=== PATIENT | female | born 1960 | race African-American/Black ===

== ENCOUNTER 2018-07-05 18:55 | Emergency (ER) | END 2018-07-05 22:06 | disposition home or self-care (01) ==

== ENCOUNTER 2018-08-23 16:35 | Emergency (ER) | END 2018-08-23 20:02 | disposition home or self-care (01) ==

== ENCOUNTER 2019-02-19 17:28 | Inpatient (IN) | payer OTHER ==
[~2019-02-19] VITALS: Ht 167.6 cm; Wt 73.1 kg
[~2019-02-19 17:28] MED LIST: CALC667C PO; CLON-379 PO; CLOP75TA19 PO; DIPH50CA30 PO; LABE200T25 PO; LEVE100018 PO; LOSA50TA14 PO; NIFE90TA21 PO
--- NOTE | 2019-02-19 17:39 | ERD ---
ER Documentation Chief Complaint Chief Complaint Chest pain HPI The patient is a 58-year-old female, presenting to the ER because of substernal and left-sided chest pain began after dialysis, had about 9 minutes left, sharp, 06/07, had similar symptom previously. She was treated with 3 nitroglycerin spray by EMS and the pain went down to 6-7/10. He denies chest pain with vomiting/radiation/exertion/diaphoresis, dyspnea, abdominal pain, vomiting, dysuria, diarrhea. She smokes, denies drinking, had history of substance abuse Past medical history: Epilepsy, hypertension, chronic kidney disease on hemodialysis Tuesday and Tuesday, asthma, depression Past surgical history: Right chest hemodialysis catheter ROS All systems reviewed and are negative except as per history of present illness. Medications Home Meds Active Scripts Levetiracetam* (Keppra*) 1,000 Mg Tablet, 1000 MG PO every 24 hours, #60 TAB Prov:CORDELL LITTLE DO 07/05/18 Reported Medications Nifedipine* (Nifedipine ER*) 90 Mg Tablet.sa, 90 MG PO DAILY, TAB.SA 08/23/18 Losartan Potassium* (Losartan Potassium*) 50 Mg Tablet, 50 MG PO DAILY, TAB 08/23/18 Diphenhydramine Hcl (BANOPHEN) 50 Mg Capsule, 50 MG PO QHS, CAP 08/23/18 Labetalol Hcl* (Labetalol Hcl*) 200 Mg Tablet, 200 MG PO TID, TAB 07/05/18 Calcium Acetate* (Calcium Acetate*) 667 Mg Capsule, 1334 MG PO WITH MEALS, #60 CAP 07/05/18 Clonidine Hcl* (Clonidine Hcl*) 0.1 Mg Tab, 0.1 MG PO TID PRN for ELEVATED BLOOD PRESSURE, TAB 07/05/18 Clopidogrel Bisulfate* (Clopidogrel Bisulfate*) 75 Mg Tablet, 75 MG PO DAILY, #30 TAB 07/05/18 Allergies Allergies: Coded Allergies: aspirin (Verified Allergy, Unknown, 08/23/18) PMhx/Soc History of Surgery: Yes (R arm AVF) Anesthesia Reaction: No Hx Neurological Disorder: No Hx Respiratory Disorders: Yes (ASTHMA) Hx Cardiac Disorders: Yes (HTN) Hx Psychiatric Problems: Yes (DEPRESSION) Hx Miscellaneous Medical Probl: Yes (CVA W/ RLE DEFICIT, CKD W/ ESRD MWF DIALYSIS) Hx Alcohol Use: Yes Hx Substance Use: Yes (MARIJUANA AND COCAINE) Hx Tobacco Use: Yes Physical Exam Vitals Vital Signs Date Temp Pulse Resp B/P (MAP) Pulse Ox O2 O2 Flow FiO2 Time Delivery Rate 02/19/19 Nasal 2 17:48 Cannula 02/19/19 98.1 78 18 165/101 100 17:40 (122) 02/19/19 98.5 82 18 163/99 98 17:34 (120) Physical Exam Const: No acute distress. Head: Atraumatic. Eyes: Normal Conjunctiva. ENT: Normal External Ears, Nose and Mouth. Neck: Full range of motion. No meningismus. Resp: Clear to auscultation bilaterally. Cardio: Regular rate and rhythm. Right chest hemodialysis catheter Abd: Soft, non distended, normal bowel sounds, non tender. Skin: No petechiae or rashes. Back: No midline or flank tenderness. Ext: No cyanosis, or edema. Neur: Awake and alert. No focal deficit Psych: Normal Mood and Affect. Result Diagram: 02/19/19 1745 02/19/19 1745 Results 24 hrs Laboratory Tests Test 02/19/19 17:45 White Blood Count 5.1 10^3/ul Red Blood Count 3.32 10^6/ul Hemoglobin 10.6 g/dl Hematocrit 32.0 % Mean Corpuscular Volume 96.4 fl Mean Corpuscular Hemoglobin 31.9 pg Mean Corpuscular Hemoglobin Concent 33.1 g/dl Red Cell Distribution Width 15.1 % Platelet Count 128 10^3/UL Mean Platelet Volume 10.6 fl Immature Granulocytes % 0.600 % Neutrophils % 49.2 % Lymphocytes % 36.7 % Monocytes % 9.4 % Eosinophils % 3.3 % Basophils % 0.8 % Nucleated Red Blood Cells % 0.0 /100WBC Immature Granulocytes # 0.030 10^3/ul Neutrophils # 2.5 10^3/ul Lymphocytes # 1.9 10^3/ul Monocytes # 0.5 10^3/ul Eosinophils # 0.2 10^3/ul Basophils # 0.0 10^3/ul Nucleated Red Blood Cells # 0.0 10^3/ul Sodium Level 136 mmol/L Potassium Level 4.0 mmol/L Chloride Level 97 mmol/L Carbon Dioxide Level 27 mmol/L Anion Gap 12 Blood Urea Nitrogen 24 mg/dl Creatinine 4.15 mg/dl Est Glomerular Filtrat Rate mL/min 13 mL/min Glucose Level 97 mg/dl Calcium Level 9.3 mg/dl Troponin I 0.028 ng/ml Current Medications Medications Dose Sig/Bin Start Time Status Last (Trade) Ordered Route PRN Stop Time Admin Dose Reason Admin 1 inch ONCE ONCE 02/19/19 DC 02/19/19 Nitroglycerin TD 18:00 17:55 02/19/19 18:16 (Nitroglyceri n 2% Oint) Clopidogrel 75 mg ONCE ONCE 02/19/19 Bisulfate PO 20:00 (plaVIX) 02/19/19 20:01 Procedures/[place] [id number] Radiology Main Line: [phone] DIAGNOSTIC IMAGING REPORT Patient: DANNY GEORGE : 1960 Age: 58 Sex: F MR #: [id number] DOS: 02/19/19 1746 Ordering MD: LUCY LONG MD Location: E/R Room/Bed: PROCEDURE: XR Chest. CLINICAL INDICATION: Chest pain. TECHNIQUE: Single frontal view. COMPARISON: August 11, 2018. FINDINGS: There is a tunneled right internal jugular vein dialysis catheter with the tip in the mid superior vena cava. The lungs are clear. The heart is enlarged. There is calcification in the aorta consistent with atherosclerosis. There is no pleural effusion. There is no pneumothorax. IMPRESSION: 1. Dialysis catheter tip in the mid superior vena cava. 2. Cardiomegaly and atherosclerosis. 3. Otherwise unremarkable chest radiograph. RPTAT: QQ .Holden Daniels MD, MD Date Time Electronically viewed and signed by .Holden Daniels MD, MD on 02/19/2019 19:02 .R/ CC: LUCY LONG MD [id number] EKG: At 5:42 PM read by emergency physician Rate/Rhythm: Normal Sinus Rhythm 76 beats/min QRS, ST, T-waves: No ST elevation, no T inversion, LVH Impression: Abnormal EKG EKG: At 7:05 PM read by emergency physician Rate/Rhythm: Normal Sinus Rhythm 70 beats/min QRS, ST, T-waves: No ST elevation, no T inversion, LVH Impression: Abnormal EKG Urine drug screen is pending MEDICAL MAKING DECISION: The patient is a 58-year-old female with multiple CAD risk factor, presenting with acute chest pain concerning for acute ACS. She was treated with 1 inch of nitroglycerin ointment to the chest wall and Plavix 75 mg p.o. because she is allergic to aspirin for acute chest pain with good response The differential diagnoses considered include but are not limited to acute coronary syndrome, acute myocardial infarction, pericarditis, pulmonary embolism, aortic dissection, pneumonia, pleural effusion, pneumothorax, GERD, chest wall pain. Departure Diagnosis: Primary Impression: Chest pain Additional Impressions: Anemia Thrombocytopenia Condition: Stable Comments I discussed the findings with the patient. I discussed the patient with Dr. Kruse at 7:40 PM , who was made aware of the lab, the treatment, the patient condition. The patient is admitted to Tel Obs Disclaimer: Inadvertent spelling and grammatical errors are likely due to EHR/dictation software use and do not reflect on the overall quality of patient care. Also, please note that the electronic time recorded on this note does not necessarily reflect the actual time of the patient encounter. LUCY LONG MD Feb 19, 2019 17:39
[2019-02-19] MEDS ORDERED: NITROGLYCERIN 2% 1 GM OINT PKT TD ONE (18:00)
[2019-02-19] MEDS ORDERED: CLOPIDOGREL 75 MG TAB PO ONE (20:00)
--- NOTE | 2019-02-19 20:25 | HP ---
Date/Time of Note Date/Time of Note DATE: 02/19/19 TIME: 20:25 Assessment/Plan VTE Prophylaxis SCD applied (from Nsg): Yes Pharmacological prophylaxis: NA/contraindicated Pharm contraindication: low risk/ambulating Lines/Catheters IV Catheter Type (from Nrsg): Saline Lock Assessment/Plan Hospital Course This is a 58-year-old female being admitted to the telemetry floor for observation for: #1 chest pain: Rule out ACS versus other. Chest x-ray within normal values. Patient presented afebrile and with normal white blood cell count. Initial troponin was negative. Will trend cardiac enzymes x3. Will check an echocardiogram. #2 end-stage renal disease: On HD Tuesday. Patient did not complete her whole dialysis session on Tuesday secondary to the episode above. Creatinine 4.15 which appears to be improved from previous. Electrolytes appear within normal values. Will consult nephrology for further guidance. #3 epilepsy: Currently not on any new medications, will need to confirm with the patient in the a.m. if she is taking anything at home. #4 hypertension: Continue patient's home medications, will monitor renal function and when it is deemed at baseline we will resume losartan #5 history of CVA: Continue Plavix #6 Asthma: PRN nebs as needed #7 depression: Currently not on medication #8 normocytic anemia: Likely secondary to anemia of end-stage renal disease. Consult nephrology. #9 DVT GI prophylaxis: Heparin subcu, no GI prophylaxis indicated Further treatment strategy will be implemented as per the clinical course Result Diagram: 02/19/19 1745 02/19/19 1745 Results 24hrs Laboratory Tests Test 02/19/19 17:45 White Blood Count 5.1 Red Blood Count 3.32 #L Hemoglobin 10.6 #L Hematocrit 32.0 #L Mean Corpuscular Volume 96.4 Mean Corpuscular Hemoglobin 31.9 Mean Corpuscular Hemoglobin Concent 33.1 Red Cell Distribution Width 15.1 H Platelet Count 128 #L Mean Platelet Volume 10.6 H Immature Granulocytes % 0.600 H Neutrophils % 49.2 Lymphocytes % 36.7 Monocytes % 9.4 Eosinophils % 3.3 Basophils % 0.8 Nucleated Red Blood Cells % 0.0 Immature Granulocytes # 0.030 Neutrophils # 2.5 Lymphocytes # 1.9 Monocytes # 0.5 Eosinophils # 0.2 Basophils # 0.0 Nucleated Red Blood Cells # 0.0 Sodium Level 136 Potassium Level 4.0 Chloride Level 97 Carbon Dioxide Level 27 Anion Gap 12 Blood Urea Nitrogen 24 H Creatinine 4.15 H Est Glomerular Filtrat Rate mL/min 13 L Glucose Level 97 Calcium Level 9.3 Troponin I 0.028 HPI/ROS Admit Date/Time Admit Date/Time Hx of Present Illness Chief complaint: Shortness of breath, chest pain during dialysis Patient is a poor historian. This is a 58-year-old female who presented to [facility] emergency department after complaining of shortness of breath and chest pain that occurred during dialysis. Patient reports that she started having shortness of breath and left and right-sided chest pain that was 10 out of 10. She reports that it was sharp. She did receive nitroglycerin spray in the EMS and it did improve his pain but did not completely relieve it. She denied any diaphoresis lower extremity edema. Denies any fevers. She does live in an apartment complex by herself. 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 Allergies: Aspirin Medications: See KIM CARO [phone] ROS Const: As per HPI Eyes : No pain discharge or redness or change in visual acuity ENT: No pain, sore throat, congestion, congestion, dysphagia or discharge Respiratory: No shortness of breath, cough, sputum, wheezing, or pleuritic pain Cardiovascular: As per HPI GI : no change in appetite, abdominal pain, nausea, vomiting, diarrhea, const ipation, or change in the color his stool Genitourinary: No dysuria, hematuria, flank pain , discharge or CVA tenderness Musculoskeletal: No joint pain, back pain, neck pain, restricted range of motion in neck or joints Skin: No rash, bruising or hives Neuro: No headache, dizziness, syncope, seizure, focal weakness Endocrine: No polyuria, polydipsia, temperature intolerance Psych: No hallucination, depression, anxiety or suicidal ideation PMH/Family/Social Past Medical History Epilepsy, hypertension, end-stage renal disease on hemodialysis Tuesday and Tuesday, asthma, depression, history of CVA with right lower extremity deficit Coded Allergies: aspirin (Unverified Allergy, Unknown, 02/19/19) Past Surgical History Right chest hemodialysis catheter Family History Significant Family History: no pertinent family hx Social History Alcohol Use: none Smoking Status: Current every day smoker Drug Use: none Exam/Review of Systems Vital Signs Vitals Vital Signs Date Temp Pulse Resp B/P (MAP) Pulse Ox O2 O2 Flow FiO2 Time Delivery Rate 02/19/19 Nasal 2 17:48 Cannula 02/19/19 98.1 78 18 165/101 100 17:40 (122) Exam Exam General: Patient is a pleasant female currently lying in bed in no acute distress HEENT: Atraumatic, normocephalic. The pupils are equal, round and reactive. Extraocular motor are intact Neck: Supple with full range of motion. No rigidity or meningismus Chest: Palpable tenderness palpation over the anterior left and right chest w alls, right chest permacath Lungs: Clear to auscultation bilaterally no crackles rales or wheezing Heart: Normal S1-S2, Regular rhythm and rate. No murmur, S3, or S4 Abdomen: Soft , nontender, nondistended , bowel sounds are present. No guarding no rebound tenderness , No masses or organomegaly. No costovertebral temporal angle mass Extremities: Normal to inspection, no edema no cyanosis Neurologic: Normal mental status, speech normal, cranial nerves II through XII are intact, motor and sensory are intact, Additional Comments EKG: Rate/Rhythm: Normal Sinus Rhythm 76 beats/min QRS, ST, T-waves: No ST elevation, no T inversion, LVH PROCEDURE: XR Chest. CLINICAL INDICATION: Chest pain. TECHNIQUE: Single frontal view. COMPARISON: August 11, 2018. FINDINGS: There is a tunneled right internal jugular vein dialysis catheter with the tip in the mid superior vena cava. The lungs are clear. The heart is enlarged. There is calcification in the aorta consistent with atherosclerosis. There is no pleural effusion. There is no pneumothorax. IMPRESSION: 1. Dialysis catheter tip in the mid superior vena cava. 2. Cardiomegaly and atherosclerosis. 3. Otherwise unremarkable chest radiograph. RPTAT: QQ .Holden Daniels MD, MD Date Time Electronically viewed and signed by .Holden Daniels MD, MD on 02/19/2019 19:02 .R/ CC: LUCY LONG MD [phone] ELIS MONIQUE Feb 19, 2019 20:25
[2019-02-19] MEDS ORDERED: NITROGLYCERIN (SL) 0.4 MG TAB SL PRN (20:30)
[2019-02-19] MEDS ORDERED: DOCUSATE SODIUM 100 MG CAP PO PRN (20:30)
[2019-02-19] MEDS ORDERED: morphine 2 MG INJ IV PRN (20:30)
[2019-02-19] MEDS ORDERED: hydrALAzine 20 MG INJ IV PRN (20:30)
[2019-02-19] MEDS ORDERED: ACETAMINOPHEN 325 MG TAB PO PRN (20:30)
[2019-02-19] MEDS ORDERED: BISACODYL (EC) 5 MG TAB PO PRN (20:30)
[2019-02-19] MEDS ORDERED: NACL 0.9% 3 ML SYG IV SCH (20:30)
[2019-02-19] MEDS ORDERED: ONDANSETRON 4 MG INJ IV PRN (20:30)
[2019-02-19] MEDS ORDERED: CHOL100062 PO (20:41)
[2019-02-19] MEDS ORDERED: FOLI0.8T2 PO (20:41)
[2019-02-19] MEDS ORDERED: FOLI-49 PO (20:41)
[2019-02-19] MEDS: LABETALOL 200 MG TAB PO SCH (22:04)
[2019-02-19] MEDS: HEPARIN 5,000 UNIT/1 ML VIAL SC SCH (22:04)
[2019-02-19 23:14] VITALS: PULSE 68
[2019-02-19 23:15] VITALS: BP 160/83; PULSE 65; RESP 20; Ht 167.6 cm; Wt 73.1 kg
[2019-02-19 23:20] VITALS: BP 153/71; PULSE 72; RESP 18
[2019-02-19] MEDS ORDERED: LOSA100T15 PO (23:22)
[2019-02-19] MEDS ORDERED: DOCU-216 PO (23:22)
[2019-02-19] MEDS: DIPHENHYDRAMINE 50 MG CAP PO SCH (23:51)
[2019-02-20] VITALS (11 sets, daily range): BP systolic 128–171; BP diastolic 59–82; PULSE 66–78; RESP 20–22
[2019-02-20] MEDS: HEPARIN 5,000 UNIT/1 ML VIAL SC SCH (05:34)
[2019-02-20] MEDS: CALCIUM ACETATE 667 MG CAP PO SCH ×3 (08:29→18:14)
[2019-02-20] MEDS: CLOPIDOGREL 75 MG TAB PO SCH (08:29)
[2019-02-20] MEDS: LABETALOL 200 MG TAB PO SCH ×3 (08:30→20:37)
[2019-02-20] MEDS: NIFEdipine (XL) 90 MG TAB PO SCH (08:31)
--- NOTE | 2019-02-20 08:36 | CONS ---
Assessment/Plan Assessment/Plan Assessment/Plan (Daily) 1. ESRD on HD MWF schedule 2. acute chest pain 3. Acute breakthrough recurrent seizure with h/o Epilepsy- possibly due to non compliance 4. H/o HTN 5. h/o HL Plan: see on tele floor will plan for HD tomorrow, today K normal and BP controlled, Pt had 4 hr HD yesterday Neurology has been consulted for work up of recurrent seizures Cardiology has been consulte, ECho showed normal 65% with stage I diastolic dysfunction will follow up , Thanks for consultation Consultation Date/Type/Reason Admit Date/Time 02/19/19 Date of Consultation: Feb 20, 2019 Type of Consult NEPHROLOGY Reason for Consultation ESRD on HD admitted with Chest pain and recurrent breakthrough seizure Requesting Provider: ELIS MONIQUE Date/Time of Note DATE: 02/20/19 TIME: 08:36 Hx of Present Illness 58 yo F w/ history of disorders, ESRD/HD MWF,htn,anrmia,cva, transferred from dialysis unit for chest pain.. pt had a tonic clonic seizure at HD unit and had a one seizure in ED. Renal has been consulted for her HD need, pt finished her HD yesterday for 4 hr and it was stopped after 4 hr due to chest pain.Today K is normal BP controlled Neurology and cardiology has been consulted on the case Constitutional: no complaints Eyes: no complaints ENT: congestion Respiratory: pain Cardiovascular: chest pain Gastrointestinal: no complaints Genitourinary: no complaints Musculoskeletal: no complaints Skin: no complaints Neurologic: seizure Endocrine: no complaints Lymphatic: no complaints Psychological: no complaints Immunologic: no complaints Past Medical History Medical History: high cholesterol, hypertension, other (Seizure disorder, ESRD on HD ) Home Meds Reported Medications Losartan Potassium* (Losartan Potassium*) 100 Mg Tablet, 100 MG PO QHS, TAB 02/19/19 Docusate Sodium (Dok) 100 Mg Capsule, 10 MG PO BID for 90 Days, #180 02/19/19 Folic Acid/Vitamin B Comp W-C (Renal Multivitamin Tablet) 0.8 Mg Tablet, 0.8 MG PO DAILY for 60 Days, #60 02/19/19 Cholecalciferol* (Vitamin D3*) 1,000 Unit Tablet, 1000 UNIT PO DAILY for 90 Days, #90 02/19/19 Folic Acid* (Folic Acid*) 1 Mg Tablet, 1 MG PO DAILY for 60 Days, #60 02/19/19 Nifedipine* (Nifedipine ER*) 90 Mg Tablet.sa, 90 MG PO DAILY, TAB.SA 08/23/18 Diphenhydramine Hcl (BANOPHEN) 50 Mg Capsule, 50 MG PO QHS, CAP 08/23/18 Labetalol Hcl* (Labetalol Hcl*) 200 Mg Tablet, 200 MG PO TID, TAB 07/05/18 Calcium Acetate* (Calcium Acetate*) 667 Mg Capsule, 1334 MG PO WITH MEALS, #60 CAP 07/05/18 Clonidine Hcl* (Clonidine Hcl*) 0.1 Mg Tab, 0.1 MG PO TID PRN for ELEVATED BLOOD PRESSURE, TAB 07/05/18 Clopidogrel Bisulfate* (Clopidogrel Bisulfate*) 75 Mg Tablet, 75 MG PO DAILY, #30 TAB 07/05/18 Discontinued Reported Medications Losartan Potassium* (Losartan Potassium*) 50 Mg Tablet, 50 MG PO DAILY, TAB 08/23/18 Discontinued Scripts Levetiracetam* (Keppra*) 1,000 Mg Tablet, 1000 MG PO every 24 hours, #60 TAB Prov:CORDELL LITTLE DO 07/05/18 Medications Current Medications Calcium Acetate (Phoslo) 1,334 mg WITH MEALS PO Last administered on 02/20/19at 08:29; Admin Dose 1,334 MG; Start 02/20/19 at 07:55 Clonidine (Catapres) 0.1 mg TID PRN PO SBP > 160; Start 02/19/19 at 20:30 Clopidogrel Bisulfate (plaVIX) 75 mg DAILY PO Last administered on 02/20/19at 08:29; Admin Dose 75 MG; Start 02/20/19 at 09:00 Diphenhydramine HCl (Benadryl) 50 mg QHS PO Last administered on 02/19/19at 23:51; Admin Dose 50 MG; Start 02/19/19 at 21:00 Labetalol HCl (Normodyne) 200 mg TID PO Last administered on 02/20/19at 08:30; Admin Dose 200 MG; Start 02/19/19 at 21:00 Nifedipine (Procardia Xl) 90 mg DAILY PO Last administered on 02/20/19at 08:31; Admin Dose 90 MG; Start 02/20/19 at 09:00 IV Flush (NS 3 ml) 3 ml PER PROTOCOL IV ; Start 02/19/19 at 20:30 Ondansetron HCl (Zofran Inj) 4 mg Q6H PRN IV NAUSEA/VOMITING; Start 02/19/19 at 20:30 Nitroglycerin (Nitroglycerin (Sl Tab) 0.4 Mg) 1 tab Q5M PRN SL .CHEST PAIN; Start 02/19/19 at 20:30 Acetaminophen (Tylenol Tab) 650 mg Q6H PRN PO .PAIN 1-3 OR TEMP; Start 02/19/19 at 20:30 Morphine Sulfate (morphine) 2 mg Q4H PRN IV .PAIN 7-10; Start 02/19/19 at 20:30 Docusate Sodium (Colace) 100 mg Q12H PRN PO .CONSTIPATION; Start 02/19/19 at 20:30 Bisacodyl (Dulcolax) 5 mg DAILY PRN PO .CONSTIPATION; Start 02/19/19 at 20:30 Heparin Sodium (Porcine) (Heparin (5000 Units/1ml)) 5,000 unit Q8 SC Last administered on 02/20/19at 05:34; Admin Dose 5,000 UNIT; Start 02/19/19 at 22:00 Hydralazine HCl (Apresoline) 10 mg Q4H PRN IV ELEVATED BLOOD PRESSURE; Start 02/19/19 at 20:30 Allergies: Coded Allergies: aspirin (Unverified Allergy, Unknown, 02/19/19) Past Surgical History Past Surgical Hx: other (C section ) Family History Significant Family History: no pertinent family hx Social History Alcohol Use: none Smoking Status: Current some day smoker Drug Use: none Exam/Review of Systems Exam Vitals Vital Signs Date Temp Pulse Resp B/P (MAP) Pulse Ox O2 O2 Flow FiO2 Time Delivery Rate 02/20/19 98.7 66 20 161/80 96 Room Air 07:22 (107) 02/19/19 2.0 22:31 Intake and Output 02/19/19 02/19/19 02/20/19 1515:00 23:00 07:00 IntakeIntake Total 150 ml BalanceBalance 150 ml Constitutional: alert Head: normocephalic Eyes: nl conjunctiva ENMT: nl external ears & nose Neck: supple, non-tender Respiratory: clear to auscultation, diminished breath sounds Cardiovascular: regular rate and rhythm, nl pulses Gastrointestinal: soft, non-tender Musculoskeletal: nl extremities to inspection, nl gait and stance Extremities: normal pulses Neurological: COFOUNDER II-XII intact, nl mental status, nl speech, nl strength Skin: nl turgor Lymph: nl lymph nodes Results Result Diagram: 02/20/19 0554 02/20/19 0554 Results 24hrs Laboratory Tests Test 02/19/19 17:45 02/20/19 00:09 02/20/19 05:54 White Blood Count 5.1 4.5 L Red Blood Count 3.32 #L 3.34 L Hemoglobin 10.6 #L 10.5 L Hematocrit 32.0 #L 32.8 L Mean Corpuscular Volume 96.4 98.2 Mean Corpuscular Hemoglobin 31.9 31.4 Mean Corpuscular Hemoglobin Concent 33.1 32.0 Red Cell Distribution Width 15.1 H 14.9 H Platelet Count 128 #L 129 L Mean Platelet Volume 10.6 H 10.8 H Immature Granulocytes % 0.600 H 0.400 Neutrophils % 49.2 53.0 Lymphocytes % 36.7 32.9 Monocytes % 9.4 10.2 Eosinophils % 3.3 3.1 Basophils % 0.8 0.4 Nucleated Red Blood Cells % 0.0 0.0 Immature Granulocytes # 0.030 0.020 Neutrophils # 2.5 2.4 Lymphocytes # 1.9 1.5 Monocytes # 0.5 0.5 Eosinophils # 0.2 0.1 Basophils # 0.0 0.0 Nucleated Red Blood Cells # 0.0 0.0 Sodium Level 136 141 Potassium Level 4.0 4.7 Chloride Level 97 100 Carbon Dioxide Level 27 29 Anion Gap 12 12 Blood Urea Nitrogen 24 H 40 #H Creatinine 4.15 H 5.68 H Est Glomerular Filtrat Rate mL/min 13 L 9 L Glucose Level 97 121 Calcium Level 9.3 9.3 Troponin I 0.028 0.041 0.036 Creatine Kinase 78 95 Creatine Kinase Index 1.3 1.2 Creatinine Kinase MB (Mass) 1.00 1.10 Hemoglobin A1c 5.0 Magnesium Level 2.1 Total Bilirubin 0.3 Direct Bilirubin 0.00 Indirect Bilirubin 0.3 Aspartate Amino Transf (AST/SGOT) 16 Alanine Aminotransferase (ALT/SGPT) 10 L Alkaline Phosphatase 72 Total Protein 6.7 Albumin 3.7 Globulin 3.00 Albumin/Globulin Ratio 1.23 Triglycerides Level 75 Cholesterol Level 257 H LDL Cholesterol, Calculated 168 HDL Cholesterol 74 Cholesterol/HDL Ratio 3.4 Thyroid Stimulating Hormone (TSH) 1.440 Medications Medication Current Medications Calcium Acetate (Phoslo) 1,334 mg WITH MEALS PO Last administered on 02/20/19at 08:29; Admin Dose 1,334 MG; Start 02/20/19 at 07:55 Clonidine (Catapres) 0.1 mg TID PRN PO SBP > 160; Start 02/19/19 at 20:30 Clopidogrel Bisulfate (plaVIX) 75 mg DAILY PO Last administered on 02/20/19at 08:29; Admin Dose 75 MG; Start 02/20/19 at 09:00 Diphenhydramine HCl (Benadryl) 50 mg QHS PO Last administered on 02/19/19at 23:51; Admin Dose 50 MG; Start 02/19/19 at 21:00 Labetalol HCl (Normodyne) 200 mg TID PO Last administered on 02/20/19at 08:30; Admin Dose 200 MG; Start 02/19/19 at 21:00 Nifedipine (Procardia Xl) 90 mg DAILY PO Last administered on 02/20/19at 08:31; Admin Dose 90 MG; Start 02/20/19 at 09:00 IV Flush (NS 3 ml) 3 ml PER PROTOCOL IV ; Start 02/19/19 at 20:30 Ondansetron HCl (Zofran Inj) 4 mg Q6H PRN IV NAUSEA/VOMITING; Start 02/19/19 at 20:30 Nitroglycerin (Nitroglycerin (Sl Tab) 0.4 Mg) 1 tab Q5M PRN SL .CHEST PAIN; Start 02/19/19 at 20:30 Acetaminophen (Tylenol Tab) 650 mg Q6H PRN PO .PAIN 1-3 OR TEMP; Start 02/19/19 at 20:30 Morphine Sulfate (morphine) 2 mg Q4H PRN IV .PAIN 7-10; Start 02/19/19 at 20:30 Docusate Sodium (Colace) 100 mg Q12H PRN PO .CONSTIPATION; Start 02/19/19 at 20:30 Bisacodyl (Dulcolax) 5 mg DAILY PRN PO .CONSTIPATION; Start 02/19/19 at 20:30 Heparin Sodium (Porcine) (Heparin (5000 Units/1ml)) 5,000 unit Q8 SC Last administered on 02/20/19at 05:34; Admin Dose 5,000 UNIT; Start 02/19/19 at 22:00 Hydralazine HCl (Apresoline) 10 mg Q4H PRN IV ELEVATED BLOOD PRESSURE; Start 02/19/19 at 20:30 TYRELL READ MD Feb 20, 2019 08:36
[2019-02-20] MEDS ORDERED: SOD CHLORIDE 0.9% 1,000 ML IV SCH (09:00)
--- NOTE | 2019-02-20 11:47 | PN ---
Date/Time of Note Date/Time of Note DATE: 02/20/19 TIME: 11:46 Assessment/Plan VTE Prophylaxis Risk score (from Nsg)>0 risk: 4 SCD applied (from Nsg): Yes Pharmacological prophylaxis: NA/contraindicated Pharm contraindication: low risk/ambulating Lines/Catheters IV Catheter Type (from Nrsg): Peripheral IV Urinary Cath still in place: No Assessment/Plan Hospital Course SUBJECTIVE: The nursing staff, patient had a generalized tonic/clonic seizure activity lasting for about 60 seconds. OBJECTIVE: Vital signs-see below PHYSICAL EXAM: Constitutional: Adequately built,not in acute distress. HEENT: Head atraumatic and normocephalic. Eyes: Extraocular muscles intact. Anicteric sclerae. Pupils equal bilaterally, reactive to light. NECK: Supple without lymph node. CHEST: Clear and good breath sounds equally. No wheezing. No rhonchi. HEART: S1, S2. Regular rate and rhythm. ABDOMEN: Soft/non tender with no rebound tenderness. Bowel sounds were present. EXTREMITIES: No cyanosis, clubbing or edema. NEUROLOGIC: Alert and oriented x3. No focal deficit. No sensory deficit. PSYCHOSOCIAL: No signs of depression. INTEGUMENTARY: No open wounds. ASSESSMENT AND PLAN:58 yo F w/ history of disorders, ESRD/HD MWF,htn,anrmia,cva, transferred from dialysis unit for chest pain. Chest pain, reproducible.Resolved - On exam, patient has quite localized and reproducible pain with palpation of chest wall, so most likley this is a musculoskeletal pain in origin. - Troponins and EKG are negative for acute KS and the duration of her syptoms are not consistent with angina or ACS - No need for provocative Stress testing given not consistent with angina - No respiratory symptoms and low wells score to suggest PE - Aspirin held given low pretest probability for cardiac events Breakthrough seizures/tonic-clonic -She just had a tonic-clonic seizures lasting about 60 seconds. She also reports that she had one at the dialysis center 2. -Toxicology and cultures to rule out possible other causes of breakthrough seizures. -Give Keppra 500 mg IV x1 and PRN Ativan -CT brain/MRI studies -Seizure precautions -Neurology consultation ESRD/HD MWF -Access: Left upper extremity AV shunt -Management per nephrology Anemia of ESRD -Epogen as indicated per nephrology Dyslipidemia -Start statin Essential hypertension -on bb/ccb/clonidine Vitamin D deficiency -Resume supplementation History of stroke -Continue Plavix DVT prophylaxis: SCDs Disposition: Patient is started tonic-clonic seizure. She needs neurology consultation. Hemodialysis per nephrology team. Patient was seen in collaboration with Dr. Thacker. Result Diagram: 02/20/19 0554 02/20/19 0554 Results 24hrs Laboratory Tests Test 02/19/19 17:45 02/20/19 00:09 02/20/19 05:54 White Blood Count 5.1 4.5 L Red Blood Count 3.32 #L 3.34 L Hemoglobin 10.6 #L 10.5 L Hematocrit 32.0 #L 32.8 L Mean Corpuscular Volume 96.4 98.2 Mean Corpuscular Hemoglobin 31.9 31.4 Mean Corpuscular Hemoglobin Concent 33.1 32.0 Red Cell Distribution Width 15.1 H 14.9 H Platelet Count 128 #L 129 L Mean Platelet Volume 10.6 H 10.8 H Immature Granulocytes % 0.600 H 0.400 Neutrophils % 49.2 53.0 Lymphocytes % 36.7 32.9 Monocytes % 9.4 10.2 Eosinophils % 3.3 3.1 Basophils % 0.8 0.4 Nucleated Red Blood Cells % 0.0 0.0 Immature Granulocytes # 0.030 0.020 Neutrophils # 2.5 2.4 Lymphocytes # 1.9 1.5 Monocytes # 0.5 0.5 Eosinophils # 0.2 0.1 Basophils # 0.0 0.0 Nucleated Red Blood Cells # 0.0 0.0 Sodium Level 136 141 Potassium Level 4.0 4.7 Chloride Level 97 100 Carbon Dioxide Level 27 29 Anion Gap 12 12 Blood Urea Nitrogen 24 H 40 #H Creatinine 4.15 H 5.68 H Est Glomerular Filtrat Rate mL/min 13 L 9 L Glucose Level 97 121 Calcium Level 9.3 9.3 Troponin I 0.028 0.041 0.036 Creatine Kinase 78 95 Creatine Kinase Index 1.3 1.2 Creatinine Kinase MB (Mass) 1.00 1.10 Hemoglobin A1c 5.0 Magnesium Level 2.1 Total Bilirubin 0.3 Direct Bilirubin 0.00 Indirect Bilirubin 0.3 Aspartate Amino Transf (AST/SGOT) 16 Alanine Aminotransferase (ALT/SGPT) 10 L Alkaline Phosphatase 72 Total Protein 6.7 Albumin 3.7 Globulin 3.00 Albumin/Globulin Ratio 1.23 Triglycerides Level 75 Cholesterol Level 257 H LDL Cholesterol, Calculated 168 HDL Cholesterol 74 Cholesterol/HDL Ratio 3.4 Thyroid Stimulating Hormone (TSH) 1.440 Exam/Review of Systems Exam Vitals Vital Signs Date Temp Pulse Resp B/P (MAP) Pulse Ox O2 O2 Flow FiO2 Time Delivery Rate 02/20/19 97.8 78 20 161/81 98 Room Air 11:14 (107) 02/19/19 2.0 22:31 Intake and Output 02/19/19 02/19/19 02/20/19 1515:00 23:00 07:00 IntakeIntake Total 150 ml BalanceBalance 150 ml Results Results 24hrs Laboratory Tests Test 02/19/19 17:45 02/20/19 00:09 02/20/19 05:54 White Blood Count 5.1 4.5 L Red Blood Count 3.32 #L 3.34 L Hemoglobin 10.6 #L 10.5 L Hematocrit 32.0 #L 32.8 L Mean Corpuscular Volume 96.4 98.2 Mean Corpuscular Hemoglobin 31.9 31.4 Mean Corpuscular Hemoglobin Concent 33.1 32.0 Red Cell Distribution Width 15.1 H 14.9 H Platelet Count 128 #L 129 L Mean Platelet Volume 10.6 H 10.8 H Immature Granulocytes % 0.600 H 0.400 Neutrophils % 49.2 53.0 Lymphocytes % 36.7 32.9 Monocytes % 9.4 10.2 Eosinophils % 3.3 3.1 Basophils % 0.8 0.4 Nucleated Red Blood Cells % 0.0 0.0 Immature Granulocytes # 0.030 0.020 Neutrophils # 2.5 2.4 Lymphocytes # 1.9 1.5 Monocytes # 0.5 0.5 Eosinophils # 0.2 0.1 Basophils # 0.0 0.0 Nucleated Red Blood Cells # 0.0 0.0 Sodium Level 136 141 Potassium Level 4.0 4.7 Chloride Level 97 100 Carbon Dioxide Level 27 29 Anion Gap 12 12 Blood Urea Nitrogen 24 H 40 #H Creatinine 4.15 H 5.68 H Est Glomerular Filtrat Rate mL/min 13 L 9 L Glucose Level 97 121 Calcium Level 9.3 9.3 Troponin I 0.028 0.041 0.036 Creatine Kinase 78 95 Creatine Kinase Index 1.3 1.2 Creatinine Kinase MB (Mass) 1.00 1.10 Hemoglobin A1c 5.0 Magnesium Level 2.1 Total Bilirubin 0.3 Direct Bilirubin 0.00 Indirect Bilirubin 0.3 Aspartate Amino Transf (AST/SGOT) 16 Alanine Aminotransferase (ALT/SGPT) 10 L Alkaline Phosphatase 72 Total Protein 6.7 Albumin 3.7 Globulin 3.00 Albumin/Globulin Ratio 1.23 Triglycerides Level 75 Cholesterol Level 257 H LDL Cholesterol, Calculated 168 HDL Cholesterol 74 Cholesterol/HDL Ratio 3.4 Thyroid Stimulating Hormone (TSH) 1.440 Medications Medication Current Medications Calcium Acetate (Phoslo) 1,334 mg WITH MEALS PO Last administered on 02/20/19 08:29; Admin Dose 1,334 MG; Start 02/20/19 at 07:55 Clonidine (Catapres) 0.1 mg TID PRN PO SBP > 160; Start 02/19/19 at 20:30 Clopidogrel Bisulfate (plaVIX) 75 mg DAILY PO Last administered on 02/20/19 08:29; Admin Dose 75 MG; Start 02/20/19 at 09:00 Diphenhydramine HCl (Benadryl) 50 mg QHS PO Last administered on 02/19/19at 23:51; Admin Dose 50 MG; Start 02/19/19 at 21:00 Labetalol HCl (Normodyne) 200 mg TID PO Last administered on 02/20/19 08:30; Admin Dose 200 MG; Start 02/19/19 at 21:00 Nifedipine (Procardia Xl) 90 mg DAILY PO Last administered on 02/20/19at 08:31; Admin Dose 90 MG; Start 02/20/19 at 09:00 IV Flush (NS 3 ml) 3 ml PER PROTOCOL IV ; Start 02/19/19 at 20:30 Ondansetron HCl (Zofran Inj) 4 mg Q6H PRN IV NAUSEA/VOMITING; Start 02/19/19 at 20:30 Nitroglycerin (Nitroglycerin (Sl Tab) 0.4 Mg) 1 tab Q5M PRN SL .CHEST PAIN; Start 02/19/19 at 20:30 Acetaminophen (Tylenol Tab) 650 mg Q6H PRN PO .PAIN 1-3 OR TEMP; Start 02/19/19 at 20:30 Morphine Sulfate (morphine) 2 mg Q4H PRN IV .PAIN 7-10; Start 02/19/19 at 20:30 Docusate Sodium (Colace) 100 mg Q12H PRN PO .CONSTIPATION; Start 02/19/19 at 20:30 Bisacodyl (Dulcolax) 5 mg DAILY PRN PO .CONSTIPATION; Start 02/19/19 at 20:30 Hydralazine HCl (Apresoline) 10 mg Q4H PRN IV ELEVATED BLOOD PRESSURE; Start 02/19/19 at 20:30 Sodium Chloride 1,000 ml @ 40 mls/hr Q24H IV Last administered on 02/20/19at 09:47; Admin Dose 40 MLS/HR; Start 02/20/19 at 09:00; Stop 02/21/19 at 08:59 Levetiracetam 100 ml @ 400 mls/hr ONCE ONCE IVPB ; Start 02/20/19 at 12:00; Stop 02/20/19 at 12:14 Lorazepam (Ativan) 1 mg Q2H PRN IV seizures; Start 02/20/19 at 11:30 BLANKA ESTEBAN NP Feb 20, 2019 11:47
[2019-02-20] MEDS ORDERED: LEVETIRACETAM 500 MG (PMX) 100 ML IVPB ONE (12:00)
[2019-02-20] MEDS: FOLIC ACID 1 MG TAB PO SCH (12:24)
[2019-02-20] MEDS: MULTIVIT/CA CARB/B CMPLX/FA TAB PO SCH (12:30)
--- NOTE | 2019-02-20 13:05 | CONS ---
Assessment/Plan Assessment/Plan Hospital Course (Demo Recall) chest pain: Appears atypical and reproducible with touch consistent with musculoskeletal chest pain Hypertension End-stage renal disease on hemodialysis Seizures Reported history of asthma Reported aspirin allergy Recommendations: Myocardial infarction has been ruled out Dialysis as per renal Neuro work-up and treatment as per internal medicine Continue with blood pressure control Continue with Plavix Thank you ELIAZAR TORREZ MD [facility] Consultation Date/Type/Reason Admit Date/Time Date of Consultation: Feb 20, 2019 Type of Consult Cardiology Reason for Consultation cp Requesting Provider: ELIS MONIQUE Date/Time of Note DATE: 02/20/19 TIME: 12:56 Hx of Present Illness Interventional cardiology consultation note Chief complaint: Chest pain. Shortness of breath. Seizures Reason for consult: Chest pain History of present illness: Thank you for this referral. History was obtained per the patient was extremely poor historian discussion with the staff physicians review of the chart. This is a 58-year-old -Citizen Of [place] female with a hypertension renal failure dialysis who was sent to the emergency room because of chest pain reportedly. Patient is a poor historian cannot describe what she just stated when she was getting dialysis she was not feeling well. She has complained of left-sided sharp shooting pain. The pain is worse with touch. Is currently chest pain- free. She apparently has had a seizure activity as well in the hospital. Allergies: Aspirin Medications were reviewed as per medical reconciliation sheet Family history: No history of early coronary artery disease Social history: Non-smoker Past medical history: Incisions hemodialysis, hypertension, reportedly history of asthma, seizure disorder Review of system: Patient denies all others except for above-mentioned Past Medical History Home Meds Reported Medications Losartan Potassium* (Losartan Potassium*) 100 Mg Tablet, 100 MG PO QHS, TAB 02/19/19 Docusate Sodium (Dok) 100 Mg Capsule, 10 MG PO BID for 90 Days, #180 02/19/19 Folic Acid/Vitamin B Comp W-C (Renal Multivitamin Tablet) 0.8 Mg Tablet, 0.8 MG PO DAILY for 60 Days, #60 02/19/19 Cholecalciferol* (Vitamin D3*) 1,000 Unit Tablet, 1000 UNIT PO DAILY for 90 Days, #90 02/19/19 Folic Acid* (Folic Acid*) 1 Mg Tablet, 1 MG PO DAILY for 60 Days, #60 02/19/19 Nifedipine* (Nifedipine ER*) 90 Mg Tablet.sa, 90 MG PO DAILY, TAB.SA 08/23/18 Diphenhydramine Hcl (BANOPHEN) 50 Mg Capsule, 50 MG PO QHS, CAP 08/23/18 Labetalol Hcl* (Labetalol Hcl*) 200 Mg Tablet, 200 MG PO TID, TAB 07/05/18 Calcium Acetate* (Calcium Acetate*) 667 Mg Capsule, 1334 MG PO WITH MEALS, #60 CAP 07/05/18 Clonidine Hcl* (Clonidine Hcl*) 0.1 Mg Tab, 0.1 MG PO TID PRN for ELEVATED BLOOD PRESSURE, TAB 07/05/18 Clopidogrel Bisulfate* (Clopidogrel Bisulfate*) 75 Mg Tablet, 75 MG PO DAILY, #30 TAB 07/05/18 Discontinued Reported Medications Losartan Potassium* (Losartan Potassium*) 50 Mg Tablet, 50 MG PO DAILY, TAB 08/23/18 Discontinued Scripts Levetiracetam* (Keppra*) 1,000 Mg Tablet, 1000 MG PO every 24 hours, #60 TAB Prov:CORDELL LITTLE DO 07/05/18 Medications Current Medications Calcium Acetate (Phoslo) 1,334 mg WITH MEALS PO Last administered on 02/20/19at 12:25; Admin Dose 1,334 MG; Start 02/20/19 at 07:55 Clonidine (Catapres) 0.1 mg TID PRN PO SBP > 160; Start 02/19/19 at 20:30 Clopidogrel Bisulfate (plaVIX) 75 mg DAILY PO Last administered on 02/20/19at 08:29; Admin Dose 75 MG; Start 02/20/19 at 09:00 Diphenhydramine HCl (Benadryl) 50 mg QHS PO Last administered on 02/19/19at 23:51; Admin Dose 50 MG; Start 02/19/19 at 21:00 Labetalol HCl (Normodyne) 200 mg TID PO Last administered on 02/20/19at 12:24; Admin Dose 200 MG; Start 02/19/19 at 21:00 Nifedipine (Procardia Xl) 90 mg DAILY PO Last administered on 02/20/19at 08:31; Admin Dose 90 MG; Start 02/20/19 at 09:00 IV Flush (NS 3 ml) 3 ml PER PROTOCOL IV ; Start 02/19/19 at 20:30 Ondansetron HCl (Zofran Inj) 4 mg Q6H PRN IV NAUSEA/VOMITING; Start 02/19/19 at 20:30 Nitroglycerin (Nitroglycerin (Sl Tab) 0.4 Mg) 1 tab Q5M PRN SL .CHEST PAIN; Start 02/19/19 at 20:30 Acetaminophen (Tylenol Tab) 650 mg Q6H PRN PO .PAIN 1-3 OR TEMP; Start 02/19/19 at 20:30 Morphine Sulfate (morphine) 2 mg Q4H PRN IV .PAIN 7-10; Start 02/19/19 at 20:30 Docusate Sodium (Colace) 100 mg Q12H PRN PO .CONSTIPATION; Start 02/19/19 at 20:30 Bisacodyl (Dulcolax) 5 mg DAILY PRN PO .CONSTIPATION; Start 02/19/19 at 20:30 Hydralazine HCl (Apresoline) 10 mg Q4H PRN IV ELEVATED BLOOD PRESSURE; Start 02/19/19 at 20:30 Sodium Chloride 1,000 ml @ 40 mls/hr Q24H IV Last administered on 02/20/19at 09:47; Admin Dose 40 MLS/HR; Start 02/20/19 at 09:00; Stop 02/21/19 at 08:59 Lorazepam (Ativan) 1 mg Q2H PRN IV seizures; Start 02/20/19 at 11:30 Cholecalciferol (Vitamin D) 1,000 unit DAILY PO ; Start 02/21/19 at 09:00 Docusate Sodium (Colace) 10 mg BID PO ; Start 02/20/19 at 21:00 Folic Acid (Folic Acid) 1 mg DAILY PO Last administered on 02/20/19at 12:24; A dmin Dose 1 MG; Start 02/20/19 at 12:00 Multivit/Ca Carb/ B Cmplx/FA/Prenat (Giselle-Xavier) 1 tab DAILY PO Last administered on 02/20/19at 12:30; Admin Dose 1 TAB; Start 02/20/19 at 12:00 Losartan Potassium (Cozaar) 100 mg QHS PO ; Start 02/20/19 at 21:00 Allergies: Coded Allergies: aspirin (Unverified Allergy, Unknown, 02/19/19) Social History Alcohol Use: none Smoking Status: Current some day smoker Drug Use: none Exam/Review of Systems Vital Signs Vitals Vital Signs Date Temp Pulse Resp B/P (MAP) Pulse Ox O2 O2 Flow FiO2 Time Delivery Rate 02/20/19 97.8 78 20 161/81 98 Room Air 11:14 (107) 02/19/19 2.0 22:31 Intake and Output 02/19/19 02/19/19 02/20/19 1515:00 23:00 07:00 IntakeIntake Total 150 ml BalanceBalance 150 ml Exam Exam General: no acute distress HEENT: NC/AT. pupils are equal. round. NECK: NO JVD. no stridor. CV: RRR. systolic murmur; no gallop or rubs. Chest: Positive for reproducible chest wall tenderness on the left side and the focal area of the left chest PULM: no wheezing or rhonchi. GI: SOFT, NT, ND, no rebound or guarding Extremity: trace B/L LE edema. no clubbing. neuro: awake and alert, OX3. Psych: calm and pleasant rectal: deferred EKG normal sinus rhythm. Voltage criteria for LVH Labs Result Diagram: 02/20/19 0554 02/20/19 0554 Results 24hrs Laboratory Tests Test 02/19/19 17:45 02/20/19 00:09 02/20/19 05:54 02/20/19 11:55 White Blood Count 5.1 4.5 L Red Blood Count 3.32 #L 3.34 L Hemoglobin 10.6 #L 10.5 L Hematocrit 32.0 #L 32.8 L Mean Corpuscular 96.4 98.2 Volume Mean Corpuscular 31.9 31.4 Hemoglobin Mean Corpuscular 33.1 32.0 Hemoglobin Concent Red Cell 15.1 H 14.9 H Distribution Width Platelet Count 128 #L 129 L Mean Platelet Volume 10.6 H 10.8 H Immature 0.600 H 0.400 Granulocytes % Neutrophils % 49.2 53.0 Lymphocytes % 36.7 32.9 Monocytes % 9.4 10.2 Eosinophils % 3.3 3.1 Basophils % 0.8 0.4 Nucleated Red Blood 0.0 0.0 Cells % Immature 0.030 0.020 Granulocytes # Neutrophils # 2.5 2.4 Lymphocytes # 1.9 1.5 Monocytes # 0.5 0.5 Eosinophils # 0.2 0.1 Basophils # 0.0 0.0 Nucleated Red Blood 0.0 0.0 Cells # Sodium Level 136 141 Potassium Level 4.0 4.7 Chloride Level 97 100 Carbon Dioxide Level 27 29 Anion Gap 12 12 Blood Urea Nitrogen 24 H 40 #H Creatinine 4.15 H 5.68 H Est Glomerular 13 L 9 L Filtrat Rate mL/min Glucose Level 97 121 Calcium Level 9.3 9.3 Troponin I 0.028 0.041 0.036 Creatine Kinase 78 95 Creatine Kinase 1.3 1.2 Index Creatinine Kinase MB 1.00 1.10 (Mass) Hemoglobin A1c 5.0 Magnesium Level 2.1 Total Bilirubin 0.3 Direct Bilirubin 0.00 Indirect Bilirubin 0.3 Aspartate Amino 16 Transf (AST/SGOT) Alanine 10 L Aminotransferase (AL T/SGPT) Alkaline Phosphatase 72 Total Protein 6.7 Albumin 3.7 Globulin 3.00 Albumin/Globulin 1.23 Ratio Triglycerides Level 75 Cholesterol Level 257 H LDL Cholesterol, 168 Calculated HDL Cholesterol 74 Cholesterol/HDL 3.4 Ratio Thyroid Stimulating 1.440 Hormone (TSH) Ethyl Alcohol Level < 10.0 H Medications Medications Current Medications Calcium Acetate (Phoslo) 1,334 mg WITH MEALS PO Last administered on 02/20/19 12:25; Admin Dose 1,334 MG; Start 02/20/19 at 07:55 Clonidine (Catapres) 0.1 mg TID PRN PO SBP > 160; Start 02/19/19 at 20:30 Clopidogrel Bisulfate (plaVIX) 75 mg DAILY PO Last administered on 02/20/19at 08:29; Admin Dose 75 MG; Start 02/20/19 at 09:00 Diphenhydramine HCl (Benadryl) 50 mg QHS PO Last administered on 02/19/19at 23:51; Admin Dose 50 MG; Start 02/19/19 at 21:00 Labetalol HCl (Normodyne) 200 mg TID PO Last administered on 02/20/19 12:24; Admin Dose 200 MG; Start 02/19/19 at 21:00 Nifedipine (Procardia Xl) 90 mg DAILY PO Last administered on 02/20/19 08:31; Admin Dose 90 MG; Start 02/20/19 at 09:00 IV Flush (NS 3 ml) 3 ml PER PROTOCOL IV ; Start 02/19/19 at 20:30 Ondansetron HCl (Zofran Inj) 4 mg Q6H PRN IV NAUSEA/VOMITING; Start 02/19/19 at 20:30 Nitroglycerin (Nitroglycerin (Sl Tab) 0.4 Mg) 1 tab Q5M PRN SL .CHEST PAIN; S tart 02/19/19 at 20:30 Acetaminophen (Tylenol Tab) 650 mg Q6H PRN PO .PAIN 1-3 OR TEMP; Start 02/19/19 at 20:30 Morphine Sulfate (morphine) 2 mg Q4H PRN IV .PAIN 7-10; Start 02/19/19 at 20:30 Docusate Sodium (Colace) 100 mg Q12H PRN PO .CONSTIPATION; Start 02/19/19 at 20:30 Bisacodyl (Dulcolax) 5 mg DAILY PRN PO .CONSTIPATION; Start 02/19/19 at 20:30 Hydralazine HCl (Apresoline) 10 mg Q4H PRN IV ELEVATED BLOOD PRESSURE; Start 02/19/19 at 20:30 Sodium Chloride 1,000 ml @ 40 mls/hr Q24H IV Last administered on 02/20/19at 09:47; Admin Dose 40 MLS/HR; Start 02/20/19 at 09:00; Stop 02/21/19 at 08:59 Lorazepam (Ativan) 1 mg Q2H PRN IV seizures; Start 02/20/19 at 11:30 Cholecalciferol (Vitamin D) 1,000 unit DAILY PO ; Start 02/21/19 at 09:00 Docusate Sodium (Colace) 10 mg BID PO ; Start 02/20/19 at 21:00 Folic Acid (Folic Acid) 1 mg DAILY PO Last administered on 02/20/19at 12:24; Admin Dose 1 MG; Start 02/20/19 at 12:00 Multivit/Ca Carb/ B Cmplx/FA/Prenat (Giselle-Xavier) 1 tab DAILY PO Last administered on 02/20/19at 12:30; Admin Dose 1 TAB; Start 02/20/19 at 12:00 Losartan Potassium (Cozaar) 100 mg QHS PO ; Start 02/20/19 at 21:00 ELIAZAR TORREZ MD Feb 20, 2019 13:05
--- NOTE | 2019-02-20 13:44 | CONSI ---
Assessment/Plan Assessment/Plan Assessment/Plan (Recall) 58 F c/ reported prior Hx of prior seizures...and other comorbidities, who presents for evaluation of cardiopulmonary Sx.. She was noted to have a recurrent seizure, for which neurology is consulted. The clinical picture is consistent w/ epilepsy.. The patient endorses prior AED Tx, with which she has been recently noncompliant... Pseudoseizure is additionally considered.. P: Await Head CT Add UDS, UA...as able Start depakote for seizure ppx w/ daily Ca and Vit D Ativan iv prn prolonged seizure or cluster Will follow Consultation Date/Type/Reason Admit Date/Time Type of Consult Neurology Reason for Consultation seizure Requesting Provider: BLANKA ESTEBAN NP Date/Time of Note DATE: 02/20/19 TIME: 13:42 Hx of Present Illness This is a 58-year-old female who presented to [facility] emergency department after complaining of shortness of breath and chest pain that occurred during dialysis. Patient reports that she started having shortness of breath and left and right-sided chest pain that was 10 out of 10. She reports that it was sharp. She did receive nitroglycerin spray in the EMS and it did improve his pain but did not completely relieve it. She denied any diaphoresis lower extremity edema. Denies any fevers. She does live in an apartment complex by herself. 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 She is reported to have had a seizure of ~ 60 seconds duration...for which neurology is consulted. Notes seizures in the past.. Also notes noncompliance with seizure medications...though unsure what she is prescribed. o/w neg Objective Exam Vitals Vital Signs Date Temp Pulse Resp B/P (MAP) Pulse Ox O2 O2 Flow FiO2 Time Delivery Rate 02/20/19 97.8 78 20 161/81 98 Room Air 11:14 (107) 02/19/19 2.0 22:31 Intake and Output 02/19/19 02/19/19 02/20/19 1515:00 23:00 07:00 IntakeIntake Total 150 ml BalanceBalance 150 ml Exam PE: Gen Appearance: No Apparent Distress HEENT: Normocephalic Cardiovascular: Regular rate Abdomen: Soft Extremities: Dry NE: The patient was alert and oriented. Language was normal. Fund of knowledge was somewhat limited. Pupils were equal and reactive to light. There was no afferent pupillary defect. Visual power were normal. Funduscopic examination was limited. Extra-ocular movements were full. Ptosis was absent. There was no nystagmus. Facial sensation was normal. Face was symmetric with normal strength. Hearing was intact. Palate movements were normal. Neck strength was normal. There was normal tongue bulk and speed of movement. Tone was normal. Muscle bulk was normal. I did not see fasciculations. Arms and legs were strong. Vibration sensation was reduced distally. Temperature and pinprick sensation was normal. Rapid alternating movements were normal. There was no dysmetria. There was no intention tremor. Gait was deferred due to bedrest. Arm and leg reflexes were symmetric. Zabala's sign was absent. Plantar responses were flexor. Results Result Diagram: 02/20/19 0554 02/20/19 0554 Results 24hrs Laboratory Tests Test 02/19/19 17:45 02/20/19 00:09 02/20/19 05:54 02/20/19 11:55 White Blood Count 5.1 4.5 L Red Blood Count 3.32 #L 3.34 L Hemoglobin 10.6 #L 10.5 L Hematocrit 32.0 #L 32.8 L Mean Corpuscular 96.4 98.2 Volume Mean Corpuscular 31.9 31.4 Hemoglobin Mean Corpuscular 33.1 32.0 Hemoglobin Concent Red Cell 15.1 H 14.9 H Distribution Width Platelet Count 128 #L 129 L Mean Platelet Volume 10.6 H 10.8 H Immature 0.600 H 0.400 Granulocytes % Neutrophils % 49.2 53.0 Lymphocytes % 36.7 32.9 Monocytes % 9.4 10.2 Eosinophils % 3.3 3.1 Basophils % 0.8 0.4 Nucleated Red Blood 0.0 0.0 Cells % Immature 0.030 0.020 Granulocytes # Neutrophils # 2.5 2.4 Lymphocytes # 1.9 1.5 Monocytes # 0.5 0.5 Eosinophils # 0.2 0.1 Basophils # 0.0 0.0 Nucleated Red Blood 0.0 0.0 Cells # Sodium Level 136 141 Potassium Level 4.0 4.7 Chloride Level 97 100 Carbon Dioxide Level 27 29 Anion Gap 12 12 Blood Urea Nitrogen 24 H 40 #H Creatinine 4.15 H 5.68 H Est Glomerular 13 L 9 L Filtrat Rate mL/min Glucose Level 97 121 Calcium Level 9.3 9.3 Troponin I 0.028 0.041 0.036 Creatine Kinase 78 95 Creatine Kinase 1.3 1.2 Index Creatinine Kinase MB 1.00 1.10 (Mass) Hemoglobin A1c 5.0 Magnesium Level 2.1 Total Bilirubin 0.3 Direct Bilirubin 0.00 Indirect Bilirubin 0.3 Aspartate Amino 16 Transf (AST/SGOT) Alanine 10 L Aminotransferase (AL T/SGPT) Alkaline Phosphatase 72 Total Protein 6.7 Albumin 3.7 Globulin 3.00 Albumin/Globulin 1.23 Ratio Triglycerides Level 75 Cholesterol Level 257 H LDL Cholesterol, 168 Calculated HDL Cholesterol 74 Cholesterol/HDL 3.4 Ratio Thyroid Stimulating 1.440 Hormone (TSH) Ethyl Alcohol Level < 10.0 H Past Medical History reviewed Home Meds Reported Medications Losartan Potassium* (Losartan Potassium*) 100 Mg Tablet, 100 MG PO QHS, TAB 02/19/19 Docusate Sodium (Dok) 100 Mg Capsule, 10 MG PO BID for 90 Days, #180 02/19/19 Folic Acid/Vitamin B Comp W-C (Renal Multivitamin Tablet) 0.8 Mg Tablet, 0.8 MG PO DAILY for 60 Days, #60 02/19/19 Cholecalciferol* (Vitamin D3*) 1,000 Unit Tablet, 1000 UNIT PO DAILY for 90 Days, #90 02/19/19 Folic Acid* (Folic Acid*) 1 Mg Tablet, 1 MG PO DAILY for 60 Days, #60 02/19/19 Nifedipine* (Nifedipine ER*) 90 Mg Tablet.sa, 90 MG PO DAILY, TAB.SA 08/23/18 Diphenhydramine Hcl (BANOPHEN) 50 Mg Capsule, 50 MG PO QHS, CAP 08/23/18 Labetalol Hcl* (Labetalol Hcl*) 200 Mg Tablet, 200 MG PO TID, TAB 07/05/18 Calcium Acetate* (Calcium Acetate*) 667 Mg Capsule, 1334 MG PO WITH MEALS, #60 CAP 07/05/18 Clonidine Hcl* (Clonidine Hcl*) 0.1 Mg Tab, 0.1 MG PO TID PRN for ELEVATED BLOOD PRESSURE, TAB 07/05/18 Clopidogrel Bisulfate* (Clopidogrel Bisulfate*) 75 Mg Tablet, 75 MG PO DAILY, #30 TAB 07/05/18 Discontinued Reported Medications Losartan Potassium* (Losartan Potassium*) 50 Mg Tablet, 50 MG PO DAILY, TAB 08/23/18 Discontinued Scripts Levetiracetam* (Keppra*) 1,000 Mg Tablet, 1000 MG PO every 24 hours, #60 TAB Prov:CORDELL LITTLE DO 07/05/18 Medications Current Medications Calcium Acetate (Phoslo) 1,334 mg WITH MEALS PO Last administered on 02/20/19at 12:25; Admin Dose 1,334 MG; Start 02/20/19 at 07:55 Clonidine (Catapres) 0.1 mg TID PRN PO SBP > 160; Start 02/19/19 at 20:30 Clopidogrel Bisulfate (plaVIX) 75 mg DAILY PO Last administered on 02/20/19at 08:29; Admin Dose 75 MG; Start 02/20/19 at 09:00 Diphenhydramine HCl (Benadryl) 50 mg QHS PO Last administered on 02/19/19at 23:51; Admin Dose 50 MG; Start 02/19/19 at 21:00 Labetalol HCl (Normodyne) 200 mg TID PO Last administered on 02/20/19at 12:24; Admin Dose 200 MG; Start 02/19/19 at 21:00 Nifedipine (Procardia Xl) 90 mg DAILY PO Last administered on 02/20/19at 08:31; Admin Dose 90 MG; Start 02/20/19 at 09:00 IV Flush (NS 3 ml) 3 ml PER PROTOCOL IV ; Start 02/19/19 at 20:30 Ondansetron HCl (Zofran Inj) 4 mg Q6H PRN IV NAUSEA/VOMITING; Start 02/19/19 at 20:30 Nitroglycerin (Nitroglycerin (Sl Tab) 0.4 Mg) 1 tab Q5M PRN SL .CHEST PAIN; Start 02/19/19 at 20:30 Acetaminophen (Tylenol Tab) 650 mg Q6H PRN PO .PAIN 1-3 OR TEMP; Start 02/19/19 at 20:30 Morphine Sulfate (morphine) 2 mg Q4H PRN IV .PAIN 7-10; Start 02/19/19 at 20:30 Docusate Sodium (Colace) 100 mg Q12H PRN PO .CONSTIPATION; Start 02/19/19 at 20:30 Bisacodyl (Dulcolax) 5 mg DAILY PRN PO .CONSTIPATION; Start 02/19/19 at 20:30 Hydralazine HCl (Apresoline) 10 mg Q4H PRN IV ELEVATED BLOOD PRESSURE; Start 02/19/19 at 20:30 Sodium Chloride 1,000 ml @ 40 mls/hr Q24H IV Last administered on 02/20/19at 09:47; Admin Dose 40 MLS/HR; Start 02/20/19 at 09:00; Stop 02/21/19 at 08:59 Lorazepam (Ativan) 1 mg Q2H PRN IV seizures; Start 02/20/19 at 11:30 Cholecalciferol (Vitamin D) 1,000 unit DAILY PO ; Start 02/21/19 at 09:00 Docusate Sodium (Colace) 10 mg BID PO ; Start 02/20/19 at 21:00 Folic Acid (Folic Acid) 1 mg DAILY PO Last administered on 02/20/19at 12:24; Admin Dose 1 MG; Start 02/20/19 at 12:00 Multivit/Ca Carb/ B Cmplx/FA/Prenat (Giselle-Xavier) 1 tab DAILY PO Last administered on 02/20/19at 12:30; Admin Dose 1 TAB; Start 02/20/19 at 12:00 Losartan Potassium (Cozaar) 100 mg QHS PO ; Start 02/20/19 at 21:00 Allergies: Coded Allergies: aspirin (Unverified Allergy, Unknown, 02/19/19) Social History Alcohol Use: none Smoking Status: Current some day smoker Drug Use: none ISABEL GAMBOA Feb 20, 2019 13:44
[2019-02-20] MEDS ORDERED: HEPARIN 1000 UNITS/ML 10 ML INJ HE SCH ×2 (14:00)
[2019-02-20] MEDS ORDERED: ALBUMIN HUMAN 25% 100 ML IV PRN (14:00)
[2019-02-20] MEDS ORDERED: HEPARIN 1000 UNITS/ML 10 ML INJ CATHETER SCH (14:00)
[2019-02-20] MEDS ORDERED: SODIUM CHLORIDE 0.9% 1L BAG IV* PRN (14:00)
--- NOTE | 2019-02-20 14:06 | RADRPT ---
Echocardiogram Report Patient Name: Marizol GEORGEnt ID: [id number] : 1960 (58y 11m)Study Date: 02/20/2019 8:50:27 AM Gender: FAccession #: [id number] Tech: Carlos Manuel Hernandez [facility] Location: [id number] Ref.Physician: ELIS MONIQUE Height(Cm): BSA: Weight(Kg): Quality: AdequateOrder Physician: ELIS MONIQUE Account #: Procedures: Echocardiographic Report: Transthoracic echocardiogram with complete 2D, M-Mode, and doppler examination. Indications: Chest Pain. Measurements: 2D/M Mode Doppler Measurement Value Normal Range Measurement Value Normal Range LVIDd 2D 4.7 [ 3.8 - 5.2 ] cm AV Mean Rocael 1.2 [ 70.0 - 90.0 ] cm/sec LVIDs 2D 2.8 [ 2.2 - 3.5 ] cm AV Mean PG 7.0 [ 2.0 - 4.0 ] mmHg LVPWd 2D 1.2 [ 0.6 - 0.9 ] cm AV Peak Rocael 2.1 [ 100.0 - 170.0 ] cm/sec IVSd 2D 1.1 [ 0.6 - 0.9 ] cm AV Peak PG 18.0 [ 2.0 - 9.0 ] mmHg IVS/LVPW 2D 1.0 ratio AV VTI 43.5 cm AoR Diam 2D 2.7 [ 2.3 - 3.1 ] cm LVOT Mean Rocael 1.0 [ 60.0 - 80.0 ] cm/sec LA/Ao 2D 1 ratio LVOT Mean PG 4.0 [ 1.0 - 3.0 ] mmHg LA Dimen 2D 3.4 [ 2.7 - 3.8 ] cm LVOT Peak Rocael 1.5 [ 70.0 - 110.0 ] cm/sec LVOT Peak PG 8.0 [ 2.0 - 6.0 ] mmHg LVOT VTI 31.3 [ 20.0 - 30.0 ] cm MV E Peak Rocael 0.7 [ 60.0 - 130.0 ] cm/sec MV A Peak Rocael 1.0 [ 100.0 - 120.0 ] cm/sec MV E/A 0.6 [ 0.8 - 1.5 ] ratio MV Decel Time 187 [ 104 - 258 ] msec Lat E` Rocael 0.0 [ 10.0 - 15.0 ] cm/sec MV E/A 0.6 [ 0.8 - 1.5 ] ratio TR Peak Rocael 2.5 [ 100.0 - 280.0 ] cm/sec TR Peak PG 24.0 mmHg RVSP 34.0 [ 10.0 - 36.0 ] mmHg RA Pressure 10.0 mmHg Findings: Left Ventricle: Normal left ventricular systolic function. Normal left ventricular cavity size. Mild concentric left ventricular hypertrophy. Ejection fraction is visually estimated at 65 %. Tissue Doppler/Mitral Doppler indices are consistent with impaired relaxation (Stage I diastolic dysfunction). Right Ventricle: Normal right ventricular size. Normal right ventricular systolic function. Left Atrium: The left atrium is normal in size. Right Atrium: The right atrium is normal in size. Mitral Valve: Normal appearance and function of the mitral valve with trace physiologic regurgitation. Aortic Valve: Aortic valve Max velocity 2.14 m/sec. Max PG 18.00 mmHg. Mean PG 7.00 mmHg. Aortic sclerosis without significant stenosis. No aortic regurgitation. Tricuspid Valve: Normal appearance of the tricuspid valve. The estimated Peak RVSP is 34 mmHg. There is mild tricuspid regurgitation. Pulmonic Valve: Normal pulmonic valve appearance. Pericardium: Normal pericardium with no significant pericardial effusion. Aorta: Normal aortic root. IVC: Normal size and normal respiratory collapse consistent with normal right atrial pressure. Conclusions: Normal left ventricular systolic function. Normal left ventricular cavity size. Mild concentric left ventricular hypertrophy. Ejection fraction is visually estimated at 65 %. Tissue Doppler/Mitral Doppler indices are consistent with impaired relaxation (Stage I diastolic dysfunction). Normal appearance and function of the mitral valve with trace physiologic regurgitation. Aortic valve Max velocity 2.14 m/sec. Max PG 18.00 mmHg. Mean PG 7.00 mmHg. Aortic sclerosis without significant stenosis. No aortic regurgitation. Normal appearance of the tricuspid valve. The estimated Peak RVSP is 34 mmHg. There is mild tricuspid regurgitation. Electronically Signed By: Arian Bender 2019-02-20 14:06:20 PDT
[2019-02-20] MEDS ORDERED: VALPROATE INJ 1,000 MG in SOD CHLORIDE 0.9% 100 ML IVPB ONE (16:30)
[2019-02-20] MEDS: DIPHENHYDRAMINE 50 MG CAP PO SCH (20:37)
[2019-02-20] MEDS: DOCUSATE SODIUM 100 MG CAP PO SCH (20:42)
[2019-02-20] MEDS ORDERED: DOCUSATE SODIUM 100 MG CAP PO SCH (21:00)
[2019-02-20] MEDS ORDERED: LOSARTAN 50 MG TAB PO SCH (21:00)
[2019-02-20] MEDS: DIVALPROEX (ER) 500 MG TAB PO SCH (22:08)
[2019-02-21] VITALS (18 sets, daily range): BP systolic 134–189; BP diastolic 74–101; PULSE 62–97; RESP 16–20
[2019-02-21] MEDS: CALCIUM ACETATE 667 MG CAP PO SCH (07:15)
--- NOTE | 2019-02-21 08:04 | CONS ---
Consult Date/Type/Reason Admit Date/Time Feb 20, 2019 at 11:22 Initial Consult Date 02/20/19 Type of Consultation: cv Requesting Provider: ELIS MONIQUE Date/Time of Note DATE: 02/21/19 TIME: 08:01 Subjective cardiology follow-up progress note Subjective: Discussed with the staff and telemetry was reviewed patient remains sinus rhythm. Patient with no more chest pain or pressure. No seizure overnight is reported to me. Patient appears to be very angry at the staff Objective: General: no acute distress HEENT: NC/AT. pupils are equal. round. NECK: NO JVD. no stridor. CV: RRR. systolic murmur; no gallop or rubs. Chest: Positive for reproducible chest wall tenderness on the left side and the focal area of the left chest PULM: no wheezing or rhonchi. GI: SOFT, NT, ND, no rebound or guarding Extremity: trace B/L LE edema. no clubbing. neuro: awake and alert, OX3. Psych: Very angry and agitated rectal: deferred Echocardiogram was personally reviewed which shows: Normal left ventricular systolic function. Normal left ventricular cavity size. Mild concentric left ventricular hypertrophy. Ejection fraction is visually estimated at 65 %. Tissue Doppler/Mitral Doppler indices are consistent with impaired relaxation (Stage I diastolic dysfunction). Normal appearance and function of the mitral valve with trace physiologic regurgitation. Aortic valve Max velocity 2.14 m/sec. Max PG 18.00 mmHg. Mean PG 7.00 mmHg. Aortic sclerosis without significant stenosis. No aortic regurgitation. Normal appearance of the tricuspid valve. The estimated Peak RVSP is 34 mmHg. There is mild tricuspid regurgitation. Objective Vitals Vital Signs Date Temp Pulse Resp B/P (MAP) Pulse Ox O2 O2 Flow FiO2 Time Delivery Rate 02/21/19 97.9 97 20 168/96 96 Room Air 07:47 (120) 02/19/19 2.0 22:31 Intake and Output 02/20/19 02/20/19 02/21/19 1515:00 23:00 07:00 IntakeIntake Total 1600 ml 600 ml OutputOutput Total 1 ml BalanceBalance 1599 ml 600 ml Results/Medications Result Diagram: 02/21/19 0541 02/21/19 0541 Results 24 hrs Laboratory Tests Test 02/20/19 11:55 02/20/19 14:43 02/21/19 05:41 Ethyl Alcohol Level < 10.0 H Urine Color YELLOW Urine Clarity SLIGHTLY CLOUDY A Urine pH 9.0 Urine Specific Varina 1.009 Urine Ketones NEGATIVE Urine Nitrite NEGATIVE Urine Bilirubin NEGATIVE Urine Urobilinogen NEGATIVE Urine Leukocyte Esterase 3+ H Urine Microscopic RBC 1 Urine Microscopic WBC 21 H Urine Squamous MODERATE Epithelial Cells Urine Bacteria FEW A Urine Mucus MANY A Urine Hemoglobin NEGATIVE Urine Glucose NEGATIVE Urine Total Protein 2+ H Urine Opiates Screen Negative Urine Barbiturates Negative Urine Amphetamines Screen Negative Urine Benzodiazepines Screen Negative Urine Cocaine Screen Negative Urine Cannabinoids Negative White Blood Count 4.4 L Red Blood Count 3.28 L Hemoglobin 10.2 L Hematocrit 31.1 L Mean Corpuscular Volume 94.8 Mean Corpuscular Hemoglobin 31.1 Mean Corpuscular 32.8 Hemoglobin Concent Red Cell Distribution Width 14.6 H Platelet Count 125 L Mean Platelet Volume 10.9 H Immature Granulocytes % 0.200 Neutrophils % 36.7 L Lymphocytes % 47.6 Monocytes % 10.7 Eosinophils % 4.1 Basophils % 0.7 Nucleated Red Blood Cells % 0.0 Immature Granulocytes # 0.010 Neutrophils # 1.6 Lymphocytes # 2.1 Monocytes # 0.5 Eosinophils # 0.2 Basophils # 0.0 Nucleated Red Blood Cells # 0.0 Sodium Level 142 Potassium Level 5.3 H Chloride Level 104 Carbon Dioxide Level 23 Anion Gap 15 H Blood Urea Nitrogen 64 H Creatinine 7.43 H Est Glomerular Filtrat 7 L Rate mL/min Glucose Level 76 # Calcium Level 9.1 Magnesium Level 2.1 Home Meds Reported Medications Losartan Potassium* (Losartan Potassium*) 100 Mg Tablet, 100 MG PO QHS, TAB 02/19/19 Docusate Sodium (Dok) 100 Mg Capsule, 10 MG PO BID for 90 Days, #180 02/19/19 Folic Acid/Vitamin B Comp W-C (Renal Multivitamin Tablet) 0.8 Mg Tablet, 0.8 MG PO DAILY for 60 Days, #60 02/19/19 Cholecalciferol* (Vitamin D3*) 1,000 Unit Tablet, 1000 UNIT PO DAILY for 90 Days, #90 02/19/19 Folic Acid* (Folic Acid*) 1 Mg Tablet, 1 MG PO DAILY for 60 Days, #60 02/19/19 Nifedipine* (Nifedipine ER*) 90 Mg Tablet.sa, 90 MG PO DAILY, TAB.SA 08/23/18 Diphenhydramine Hcl (BANOPHEN) 50 Mg Capsule, 50 MG PO QHS, CAP 08/23/18 Labetalol Hcl* (Labetalol Hcl*) 200 Mg Tablet, 200 MG PO TID, TAB 07/05/18 Calcium Acetate* (Calcium Acetate*) 667 Mg Capsule, 1334 MG PO WITH MEALS, #60 CAP 07/05/18 Clonidine Hcl* (Clonidine Hcl*) 0.1 Mg Tab, 0.1 MG PO TID PRN for ELEVATED BLOOD PRESSURE, TAB 07/05/18 Clopidogrel Bisulfate* (Clopidogrel Bisulfate*) 75 Mg Tablet, 75 MG PO DAILY, #30 TAB 07/05/18 Discontinued Reported Medications Losartan Potassium* (Losartan Potassium*) 50 Mg Tablet, 50 MG PO DAILY, TAB 08/23/18 Discontinued Scripts Levetiracetam* (Keppra*) 1,000 Mg Tablet, 1000 MG PO every 24 hours, #60 TAB Prov:CORDELL LITTLE DO 07/05/18 Medications Current Medications Calcium Acetate (Phoslo) 1,334 mg WITH MEALS PO Last administered on 02/21/19at 07:15; Admin Dose 1,334 MG; Start 02/20/19 at 07:55 Clonidine (Catapres) 0.1 mg TID PRN PO SBP > 160; Start 02/19/19 at 20:30 Clopidogrel Bisulfate (plaVIX) 75 mg DAILY PO Last administered on 02/20/19at 08:29; Admin Dose 75 MG; Start 02/20/19 at 09:00 Diphenhydramine HCl (Benadryl) 50 mg QHS PO Last administered on 02/20/19at 20:37; Admin Dose 50 MG; Start 02/19/19 at 21:00 Labetalol HCl (Normodyne) 200 mg TID PO Last administered on 02/20/19at 20:37; Admin Dose 200 MG; Start 02/19/19 at 21:00 Nifedipine (Procardia Xl) 90 mg DAILY PO Last administered on 02/20/19at 08:31; Admin Dose 90 MG; Start 02/20/19 at 09:00 IV Flush (NS 3 ml) 3 ml PER PROTOCOL IV ; Start 02/19/19 at 20:30 Ondansetron HCl (Zofran Inj) 4 mg Q6H PRN IV NAUSEA/VOMITING; Start 02/19/19 at 20:30 Nitroglycerin (Nitroglycerin (Sl Tab) 0.4 Mg) 1 tab Q5M PRN SL .CHEST PAIN; Start 02/19/19 at 20:30 Acetaminophen (Tylenol Tab) 650 mg Q6H PRN PO .PAIN 1-3 OR TEMP; Start 02/19/19 at 20:30 Morphine Sulfate (morphine) 2 mg Q4H PRN IV .PAIN 7-10; Start 02/19/19 at 20:30 Docusate Sodium (Colace) 100 mg Q12H PRN PO .CONSTIPATION; Start 02/19/19 at 20:30 Bisacodyl (Dulcolax) 5 mg DAILY PRN PO .CONSTIPATION; Start 02/19/19 at 20:30 Hydralazine HCl (Apresoline) 10 mg Q4H PRN IV ELEVATED BLOOD PRESSURE; Start 02/19/19 at 20:30 Sodium Chloride 1,000 ml @ 40 mls/hr Q24H IV Last administered on 02/20/19at 09:47; Admin Dose 40 MLS/HR; Start 02/20/19 at 09:00; Stop 02/21/19 at 08:59 Lorazepam (Ativan) 1 mg Q2H PRN IV seizures; Start 02/20/19 at 11:30 Cholecalciferol (Vitamin D) 1,000 unit DAILY PO ; Start 02/21/19 at 09:00 Folic Acid (Folic Acid) 1 mg DAILY PO Last administered on 02/20/19at 12:24; Admin Dose 1 MG; Start 02/20/19 at 12:00 Multivit/Ca Carb/ B Cmplx/FA/Prenat (Giselle-Xavier) 1 tab DAILY PO Last administered on 02/20/19at 12:30; Admin Dose 1 TAB; Start 02/20/19 at 12:00 Losartan Potassium (Cozaar) 100 mg QHS PO Last administered on 02/20/19at 20:36; Admin Dose 100 MG; Start 02/20/19 at 21:00 Heparin Sodium (Porcine) (Heparin (1000 Units/ml)) 2,000 unit WITH DIALYSIS HE ; Start 02/20/19 at 14:00 Heparin Sodium (Porcine) (Heparin (1000 Units/ml)) 2,000 unit WITH DIALYSIS HE ; Start 02/20/19 at 14:00 Heparin Sodium (Porcine) (Heparin (1000 Units/ml)) 4,000 unit AFTER DIALYSIS CATHETER ; Start 02/20/19 at 14:00 Albumin Human 100 ml @ 100 mls/hr WITH DIALYSIS PRN IV SBP <90 DURING D IALYSIS; Start 02/20/19 at 14:00 Sodium Chloride (NS) -To prime the dialy... DIRECTED FOR HD PRN IV* HD; Start 02/20/19 at 14:00 Divalproex Sodium (Depakote Er) 500 mg BID PO Last administered on 02/20/19at 22:08; Admin Dose 500 MG; Start 02/20/19 at 23:00 Docusate Sodium (Colace) 100 mg BID PO Last administered on 02/20/19at 20:42; Admin Dose 100 MG; Start 02/20/19 at 21:00 Assessment/Plan Hospital Course (Demo Recall) chest pain: Appears atypical and reproducible with touch consistent with musculoskeletal chest pain Hypertension End-stage renal disease on hemodialysis Seizures Reported history of asthma Reported aspirin allergy Recommendations: Myocardial infarction has been ruled out and echo shows normal EF Dialysis as per renal Neuro work-up and treatment as per internal medicine Continue with blood pressure control Continue with Plavix Thank you ELIAZAR TORREZ MD [facility] ELIAZAR TORREZ MD Feb 21, 2019 08:04
[2019-02-21] MEDS: DIVALPROEX (ER) 500 MG TAB PO SCH (08:14)
[2019-02-21] MEDS: CLOPIDOGREL 75 MG TAB PO SCH (08:14)
[2019-02-21] MEDS: DOCUSATE SODIUM 100 MG CAP PO SCH (08:14)
[2019-02-21] MEDS: NIFEdipine (XL) 90 MG TAB PO SCH (08:14)
[2019-02-21] MEDS: MULTIVIT/CA CARB/B CMPLX/FA TAB PO SCH (08:14)
[2019-02-21] MEDS: FOLIC ACID 1 MG TAB PO SCH (08:14)
[2019-02-21] MEDS: LABETALOL 200 MG TAB PO SCH (08:15)
[2019-02-21] MEDS ORDERED: CHOLECALCIFEROL 1,000 UNIT TAB PO SCH (09:00)
[2019-02-21] MEDS ORDERED: CEFTRIAXONE 1 GM/50 ML (PMX) 50 ML IVPB SCH (09:30)
[2019-02-21] MEDS: LORAZEPAM 2 MG INJ IV PRN ×3 (11:08→12:51)
[2019-02-21] MEDS ORDERED: HEPARIN 1000 UNITS/ML 10 ML INJ CATHETER SCH (11:30)
--- NOTE | 2019-02-21 13:24 | CONS ---
Assessment/Plan Assessment/Plan Assessment/Plan (Recall) 58 F c/ reported prior Hx of prior seizures...and other comorbidities, who presents for evaluation of cardiopulmonary Sx.. She was noted to have a recurrent seizure, for which neurology is consulted. The clinical picture is consistent w/ epilepsy.. The patient endorses prior AED Tx, with which she has been recently noncompliant... Pseudoseizure is additionally considered.. Head CT is unremarkable. UA + P: Continue depakote for seizure ppx, to be titrated prn to goal level 50-100 Daily Ca and Vit D Ativan iv prn prolonged seizure or cluster Other management and supportive care per primary Will follow Consultation Date/Type/Reason Admit Date/Time Feb 20, 2019 at 11:22 Type of Consult Neurology Reason for Consultation seizure Requesting Provider: ELIS MONIQUE Date/Time of Note DATE: 02/21/19 TIME: 13:22 24 HR Interval Summary Free Text/Dictation Continues acute care Exam/Review of Systems Exam Vitals Vital Signs Date Temp Pulse Resp B/P (MAP) Pulse Ox O2 O2 Flow FiO2 Time Delivery Rate 02/21/19 71 12:20 02/21/19 16 180/92 97 Room Air 11:46 (121) 02/21/19 98.6 11:26 02/19/19 2.0 22:31 Intake and Output 02/20/19 02/20/19 02/21/19 1515:00 23:00 07:00 IntakeIntake Total 1600 ml 600 ml OutputOutput Total 1 ml BalanceBalance 1599 ml 600 ml Results Result Diagram: 02/21/19 0541 02/21/19 0541 Results 24hrs Laboratory Tests Test 02/20/19 14:43 02/21/19 05:39 02/21/19 05:41 Urine Color YELLOW Urine Clarity SLIGHTLY CLOUDY A Urine pH 9.0 Urine Specific [place] 1.009 Urine Ketones NEGATIVE Urine Nitrite NEGATIVE Urine Bilirubin NEGATIVE Urine Urobilinogen NEGATIVE Urine Leukocyte Esterase 3+ H Urine Microscopic RBC 1 Urine Microscopic WBC 21 H Urine Squamous MODERATE Epithelial Cells Urine Bacteria FEW A Urine Mucus MANY A Urine Hemoglobin NEGATIVE Urine Glucose NEGATIVE Urine Total Protein 2+ H Urine Opiates Screen Negative Urine Barbiturates Negative Urine Amphetamines Screen Negative Urine Benzodiazepines Screen Negative Urine Cocaine Screen Negative Urine Cannabinoids Negative Hepatitis B Surface Antigen NEGATIVE Hepatitis B Surface Antibody POSITIVE H White Blood Count 4.4 L Red Blood Count 3.28 L Hemoglobin 10.2 L Hematocrit 31.1 L Mean Corpuscular Volume 94.8 Mean Corpuscular Hemoglobin 31.1 Mean Corpuscular 32.8 Hemoglobin Concent Red Cell Distribution Width 14.6 H Platelet Count 125 L Mean Platelet Volume 10.9 H Immature Granulocytes % 0.200 Neutrophils % 36.7 L Lymphocytes % 47.6 Monocytes % 10.7 Eosinophils % 4.1 Basophils % 0.7 Nucleated Red Blood Cells % 0.0 Immature Granulocytes # 0.010 Neutrophils # 1.6 Lymphocytes # 2.1 Monocytes # 0.5 Eosinophils # 0.2 Basophils # 0.0 Nucleated Red Blood Cells # 0.0 Sodium Level 142 Potassium Level 5.3 H Chloride Level 104 Carbon Dioxide Level 23 Anion Gap 15 H Blood Urea Nitrogen 64 H Creatinine 7.43 H Est Glomerular Filtrat 7 L Rate mL/min Glucose Level 76 # Calcium Level 9.1 Magnesium Level 2.1 Medications Medication Current Medications Calcium Acetate (Phoslo) 1,334 mg WITH MEALS PO Last administered on 02/21/19at 07:15; Admin Dose 1,334 MG; Start 02/20/19 at 07:55 Clonidine (Catapres) 0.1 mg TID PRN PO SBP > 160; Start 02/19/19 at 20:30 Clopidogrel Bisulfate (plaVIX) 75 mg DAILY PO Last administered on 02/21/19at 08:14; Admin Dose 75 MG; Start 02/20/19 at 09:00 Diphenhydramine HCl (Benadryl) 50 mg QHS PO Last administered on 02/20/19 20: 37; Admin Dose 50 MG; Start 02/19/19 at 21:00 Labetalol HCl (Normodyne) 200 mg TID PO Last administered on 02/20/19 20:37; Admin Dose 200 MG; Start 02/19/19 at 21:00 Nifedipine (Procardia Xl) 90 mg DAILY PO Last administered on 02/20/19at 08:31; Admin Dose 90 MG; Start 02/20/19 at 09:00 IV Flush (NS 3 ml) 3 ml PER PROTOCOL IV ; Start 02/19/19 at 20:30 Ondansetron HCl (Zofran Inj) 4 mg Q6H PRN IV NAUSEA/VOMITING; Start 02/19/19 at 20:30 Nitroglycerin (Nitroglycerin (Sl Tab) 0.4 Mg) 1 tab Q5M PRN SL .CHEST PAIN; Start 02/19/19 at 20:30 Acetaminophen (Tylenol Tab) 650 mg Q6H PRN PO .PAIN 1-3 OR TEMP; Start 02/19/19 at 20:30 Morphine Sulfate (morphine) 2 mg Q4H PRN IV .PAIN 7-10; Start 02/19/19 at 20:30 Docusate Sodium (Colace) 100 mg Q12H PRN PO .CONSTIPATION; Start 02/19/19 at 20:30 Bisacodyl (Dulcolax) 5 mg DAILY PRN PO .CONSTIPATION; Start 02/19/19 at 20:30 Hydralazine HCl (Apresoline) 10 mg Q4H PRN IV ELEVATED BLOOD PRESSURE; Start 02/19/19 at 20:30 Lorazepam (Ativan) 1 mg Q2H PRN IV seizures Last administered on 02/21/19 12:51; Admin Dose 1 MG; Start 02/20/19 at 11:30 Cholecalciferol (Vitamin D) 1,000 unit DAILY PO Last administered on 02/21/19 08:14; Admin Dose 1,000 UNIT; Start 02/21/19 at 09:00 Folic Acid (Folic Acid) 1 mg DAILY PO Last administered on 02/21/19 08:14; Admin Dose 1 MG; Start 02/20/19 at 12:00 Multivit/Ca Carb/ B Cmplx/FA/Prenat (Giselle-Xavier) 1 tab DAILY PO Last administered on 02/21/19 08:14; Admin Dose 1 TAB; Start 02/20/19 at 12:00 Losartan Potassium (Cozaar) 100 mg QHS PO Last administered on 02/20/19 20:36; Admin Dose 100 MG; Start 02/20/19 at 21:00 Heparin Sodium (Porcine) (Heparin (1000 Units/ml)) 2,000 unit WITH DIALYSIS HE Last administered on 02/21/19 10:56; Admin Dose 2,000 UNIT; Start 02/20/19 at 14:00 Heparin Sodium (Porcine) (Heparin (1000 Units/ml)) 2,000 unit WITH DIALYSIS HE Last administered on 02/21/19 12:02; Admin Dose 2,000 UNIT; Start 02/20/19 at 14:00 Albumin Human 100 ml @ 100 mls/hr WITH DIALYSIS PRN IV SBP <90 DURING DIALYSIS; Start 02/20/19 at 14:00 Sodium Chloride (NS) -To prime the dialy... DIRECTED FOR HD PRN IV* HD; Start 02/20/19 at 14:00 Divalproex Sodium (Depakote Er) 500 mg BID PO Last administered on 02/21/19at 08:14; Admin Dose 500 MG; Start 02/20/19 at 23:00 Docusate Sodium (Colace) 100 mg BID PO Last administered on 02/21/19at 08:14; Admin Dose 100 MG; Start 02/20/19 at 21:00 Ceftriaxone Sodium 50 ml @ 100 mls/hr Q24H IVPB ; Start 02/21/19 at 09:30 Heparin Sodium (Porcine) (Heparin (1000 Units/ml)) 3,200 unit AFTER DIALYSIS CATHETER Last administered on 02/21/19at 13:07; Admin Dose 3,200 UNIT; Start 02/21/19 at 11:30 ISABEL GAMBOA Feb 21, 2019 13:24
--- NOTE | 2019-02-21 13:47 | CONS ---
Assessment/Plan Assessment/Plan Assessment/Plan (Daily) 1. ESRD on HD MWF schedule 2. acute chest pain 3. Acute breakthrough recurrent seizure with h/o Epilepsy- possibly due to non compliance 4. H/o HTN 5. h/o HL Plan: s/p HD today 1.4 L removed, BP stable Neurology has been consulted for work up of recurrent seizures Cardiology has been consulte, ECho showed normal 65% with stage I diastolic dysfunction ok to d/c home will follow up if pt stays here Consultation Date/Type/Reason Admit Date/Time Feb 20, 2019 at 11:22 Initial Consult Date 02/20/19 Type of Consult NEPHROLOGY Requesting Provider: ELIS MONIQUE Date/Time of Note DATE: 02/21/19 TIME: 13:47 Exam/Review of Systems Exam Vitals Vital Signs Date Temp Pulse Resp B/P (MAP) Pulse Ox O2 O2 Flow FiO2 Time Delivery Rate 02/21/19 76 12:59 02/21/19 16 180/92 97 Room Air 11:46 (121) 02/21/19 98.6 11:26 02/19/19 2.0 22:31 Intake and Output 02/20/19 02/20/19 02/21/19 1515:00 23:00 07:00 IntakeIntake Total 1600 ml 600 ml OutputOutput Total 1 ml BalanceBalance 1599 ml 600 ml Results Result Diagram: 02/21/19 0541 02/21/19 0541 Results 24hrs Laboratory Tests Test 02/20/19 14:43 02/21/19 05:39 02/21/19 05:41 Urine Color YELLOW Urine Clarity SLIGHTLY CLOUDY A Urine pH 9.0 Urine Specific [place] 1.009 Urine Ketones NEGATIVE Urine Nitrite NEGATIVE Urine Bilirubin NEGATIVE Urine Urobilinogen NEGATIVE Urine Leukocyte Esterase 3+ H Urine Microscopic RBC 1 Urine Microscopic WBC 21 H Urine Squamous MODERATE Epithelial Cells Urine Bacteria FEW A Urine Mucus MANY A Urine Hemoglobin NEGATIVE Urine Glucose NEGATIVE Urine Total Protein 2+ H Urine Opiates Screen Negative Urine Barbiturates Negative Urine Amphetamines Screen Negative Urine Benzodiazepines Screen Negative Urine Cocaine Screen Negative Urine Cannabinoids Negative Hepatitis B Surface Antigen NEGATIVE Hepatitis B Surface Antibody POSITIVE H White Blood Count 4.4 L Red Blood Count 3.28 L Hemoglobin 10.2 L Hematocrit 31.1 L Mean Corpuscular Volume 94.8 Mean Corpuscular Hemoglobin 31.1 Mean Corpuscular 32.8 Hemoglobin Concent Red Cell Distribution Width 14.6 H Platelet Count 125 L Mean Platelet Volume 10.9 H Immature Granulocytes % 0.200 Neutrophils % 36.7 L Lymphocytes % 47.6 Monocytes % 10.7 Eosinophils % 4.1 Basophils % 0.7 Nucleated Red Blood Cells % 0.0 Immature Granulocytes # 0.010 Neutrophils # 1.6 Lymphocytes # 2.1 Monocytes # 0.5 Eosinophils # 0.2 Basophils # 0.0 Nucleated Red Blood Cells # 0.0 Sodium Level 142 Potassium Level 5.3 H Chloride Level 104 Carbon Dioxide Level 23 Anion Gap 15 H Blood Urea Nitrogen 64 H Creatinine 7.43 H Est Glomerular Filtrat 7 L Rate mL/min Glucose Level 76 # Calcium Level 9.1 Magnesium Level 2.1 Medications Medication Current Medications Calcium Acetate (Phoslo) 1,334 mg WITH MEALS PO Last administered on 02/21/19at 07:15; Admin Dose 1,334 MG; Start 02/20/19 at 07:55 Clonidine (Catapres) 0.1 mg TID PRN PO SBP > 160; Start 02/19/19 at 20:30 Clopidogrel Bisulfate (plaVIX) 75 mg DAILY PO Last administered on 02/21/19at 08:14; Admin Dose 75 MG; Start 02/20/19 at 09:00 Diphenhydramine HCl (Benadryl) 50 mg QHS PO Last administered on 02/20/19at 20:37; Admin Dose 50 MG; Start 02/19/19 at 21:00 Labetalol HCl (Normodyne) 200 mg TID PO Last administered on 02/20/19at 20:37; Admin Dose 200 MG; Start 02/19/19 at 21:00 Nifedipine (Procardia Xl) 90 mg DAILY PO Last administered on 02/20/19at 08:31; Admin Dose 90 MG; Start 02/20/19 at 09:00 IV Flush (NS 3 ml) 3 ml PER PROTOCOL IV ; Start 02/19/19 at 20:30 Ondansetron HCl (Zofran Inj) 4 mg Q6H PRN IV NAUSEA/VOMITING; Start 02/19/19 at 20:30 Nitroglycerin (Nitroglycerin (Sl Tab) 0.4 Mg) 1 tab Q5M PRN SL .CHEST PAIN; Start 02/19/19 at 20:30 Acetaminophen (Tylenol Tab) 650 mg Q6H PRN PO .PAIN 1-3 OR TEMP; Start 02/19/19 at 20:30 Morphine Sulfate (morphine) 2 mg Q4H PRN IV .PAIN 7-10; Start 02/19/19 at 20:30 Docusate Sodium (Colace) 100 mg Q12H PRN PO .CONSTIPATION; Start 02/19/19 at 20:30 Bisacodyl (Dulcolax) 5 mg DAILY PRN PO .CONSTIPATION; Start 02/19/19 at 20:30 Hydralazine HCl (Apresoline) 10 mg Q4H PRN IV ELEVATED BLOOD PRESSURE; Start 02/19/19 at 20:30 Lorazepam (Ativan) 1 mg Q2H PRN IV seizures Last administered on 02/21/19 12:51; Admin Dose 1 MG; Start 02/20/19 at 11:30 Cholecalciferol (Vitamin D) 1,000 unit DAILY PO Last administered on 02/21/19 08:14; Admin Dose 1,000 UNIT; Start 02/21/19 at 09:00 Folic Acid (Folic Acid) 1 mg DAILY PO Last administered on 02/21/19 08:14; Admin Dose 1 MG; Start 02/20/19 at 12:00 Multivit/Ca Carb/ B Cmplx/FA/Prenat (Giselle-Xavier) 1 tab DAILY PO Last administered on 02/21/19 08:14; Admin Dose 1 TAB; Start 02/20/19 at 12:00 Losartan Potassium (Cozaar) 100 mg QHS PO Last administered on 02/20/19 20:36; Admin Dose 100 MG; Start 02/20/19 at 21:00 Heparin Sodium (Porcine) (Heparin (1000 Units/ml)) 2,000 unit WITH DIALYSIS HE Last administered on 02/21/19 10:56; Admin Dose 2,000 UNIT; Start 02/20/19 at 14:00 Heparin Sodium (Porcine) (Heparin (1000 Units/ml)) 2,000 unit WITH DIALYSIS HE Last administered on 02/21/19 12:02; Admin Dose 2,000 UNIT; Start 02/20/19 at 14:00 Albumin Human 100 ml @ 100 mls/hr WITH DIALYSIS PRN IV SBP <90 DURING DIALYSIS; Start 02/20/19 at 14:00 Sodium Chloride (NS) -To prime the dialy... DIRECTED FOR HD PRN IV* HD; Start 02/20/19 at 14:00 Divalproex Sodium (Depakote Er) 500 mg BID PO Last administered on 02/21/19at 08:14; Admin Dose 500 MG; Start 02/20/19 at 23:00 Docusate Sodium (Colace) 100 mg BID PO Last administered on 02/21/19at 08:14; Admin Dose 100 MG; Start 02/20/19 at 21:00 Ceftriaxone Sodium 50 ml @ 100 mls/hr Q24H IVPB ; Start 02/21/19 at 09:30 Heparin Sodium (Porcine) (Heparin (1000 Units/ml)) 3,200 unit AFTER DIALYSIS CATHETER Last administered on 02/21/19at 13:07; Admin Dose 3,200 UNIT; Start 02/21/19 at 11:30 TYRELL ERAD MD Feb 21, 2019 13:47
--- NOTE | 2019-02-21 14:27 | PN ---
Date/Time of Note Date/Time of Note DATE: 02/21/19 TIME: 14:23 Assessment/Plan VTE Prophylaxis Risk score (from Nsg)>0 risk: 1 SCD applied (from Nsg): No SCD contraindicated: other Pharmacological prophylaxis: NA/contraindicated Pharm contraindication: low risk/ambulating Lines/Catheters IV Catheter Type (from Nrsg): Peripheral IV Urinary Cath still in place: No Assessment/Plan Hospital Course SUBJECTIVE:, During dialysis session, patient again had about 12 minutes of tonic-clonic seizure activities reported. OBJECTIVE: Vital signs-see below PHYSICAL EXAM: Constitutional: Adequately built,not in acute distress. HEENT: Head atraumatic and normocephalic. Eyes: Extraocular muscles intact. Anicteric sclerae. Pupils equal bilaterally, reactive to light. NECK: Supple without lymph node. CHEST: Clear and good breath sounds equally. No wheezing. No rhonchi. HEART: S1, S2. Regular rate and rhythm. ABDOMEN: Soft/non tender with no rebound tenderness. Bowel sounds were present. EXTREMITIES: No cyanosis, clubbing or edema. NEUROLOGIC: Alert and oriented x3. No focal deficit. No sensory deficit. PSYCHOSOCIAL: No signs of depression. INTEGUMENTARY: No open wounds. ASSESSMENT AND PLAN:58 yo F w/ history of disorders, ESRD/HD MWF,htn,anrmia,cva, transferred from dialysis unit for chest pain. Chest pain, reproducible.Resolved - On exam, patient has quite localized and reproducible pain with palpation of chest wall, so most likley this is a musculoskeletal pain in origin. - Troponins and EKG are negative for acute MA and the duration of her syptoms are not consistent with angina or ACS - No need for provocative Stress testing given not consistent with angina - No respiratory symptoms and low wells score to suggest PE - Aspirin held given low pretest probability for cardiac events Breakthrough seizures/?Epilepsy,?pseudoseizures -Today patient again had seizure-like activities lasting 12 minutes during hemodialysis -CT brain unremarkable -Neurology on board and patient on Depakote ESRD/HD MWF -Access: Left upper extremity AV shunt -Management per nephrology Anemia of ESRD -Epogen as indicated per nephrology Dyslipidemia -Start statin Essential hypertension -on bb/ccb/clonidine Vitamin D deficiency -Continue supplementation History of stroke -Continue Plavix DVT prophylaxis: SCDs Disposition: Patient again had seizure-like activities with dialysis. We will keep patient in-house for another 24 hours. Today's dialysis session with not completed secondary to seizure-like activities, as such plan is another dialysis tomorrow. Patient was seen in collaboration with Dr. Thacker. Result Diagram: 02/21/19 0541 02/21/19 0541 Results 24hrs Laboratory Tests Test 02/20/19 14:43 02/21/19 05:39 02/21/19 05:41 Urine Color YELLOW Urine Clarity SLIGHTLY CLOUDY A Urine pH 9.0 Urine Specific [place] 1.009 Urine Ketones NEGATIVE Urine Nitrite NEGATIVE Urine Bilirubin NEGATIVE Urine Urobilinogen NEGATIVE Urine Leukocyte Esterase 3+ H Urine Microscopic RBC 1 Urine Microscopic WBC 21 H Urine Squamous MODERATE Epithelial Cells Urine Bacteria FEW A Urine Mucus MANY A Urine Hemoglobin NEGATIVE Urine Glucose NEGATIVE Urine Total Protein 2+ H Urine Opiates Screen Negative Urine Barbiturates Negative Urine Amphetamines Screen Negative Urine Benzodiazepines Screen Negative Urine Cocaine Screen Negative Urine Cannabinoids Negative Hepatitis B Surface Antigen NEGATIVE Hepatitis B Surface Antibody POSITIVE H White Blood Count 4.4 L Red Blood Count 3.28 L Hemoglobin 10.2 L Hematocrit 31.1 L Mean Corpuscular Volume 94.8 Mean Corpuscular Hemoglobin 31.1 Mean Corpuscular 32.8 Hemoglobin Concent Red Cell Distribution Width 14.6 H Platelet Count 125 L Mean Platelet Volume 10.9 H Immature Granulocytes % 0.200 Neutrophils % 36.7 L Lymphocytes % 47.6 Monocytes % 10.7 Eosinophils % 4.1 Basophils % 0.7 Nucleated Red Blood Cells % 0.0 Immature Granulocytes # 0.010 Neutrophils # 1.6 Lymphocytes # 2.1 Monocytes # 0.5 Eosinophils # 0.2 Basophils # 0.0 Nucleated Red Blood Cells # 0.0 Sodium Level 142 Potassium Level 5.3 H Chloride Level 104 Carbon Dioxide Level 23 Anion Gap 15 H Blood Urea Nitrogen 64 H Creatinine 7.43 H Est Glomerular Filtrat 7 L Rate mL/min Glucose Level 76 # Calcium Level 9.1 Magnesium Level 2.1 Exam/Review of Systems Exam Vitals Vital Signs Date Temp Pulse Resp B/P (MAP) Pulse Ox O2 O2 Flow FiO2 Time Delivery Rate 02/21/19 76 12:59 02/21/19 16 180/92 97 Room Air 11:46 (121) 02/21/19 98.6 11:26 02/19/19 2.0 22:31 Intake and Output 02/20/19 02/20/19 02/21/19 1515:00 23:00 07:00 IntakeIntake Total 1600 ml 600 ml OutputOutput Total 1 ml BalanceBalance 1599 ml 600 ml Results Results 24hrs Laboratory Tests Test 02/20/19 14:43 02/21/19 05:39 02/21/19 05:41 Urine Color YELLOW Urine Clarity SLIGHTLY CLOUDY A Urine pH 9.0 Urine Specific [place] 1.009 Urine Ketones NEGATIVE Urine Nitrite NEGATIVE Urine Bilirubin NEGATIVE Urine Urobilinogen NEGATIVE Urine Leukocyte Esterase 3+ H Urine Microscopic RBC 1 Urine Microscopic WBC 21 H Urine Squamous MODERATE Epithelial Cells Urine Bacteria FEW A Urine Mucus MANY A Urine Hemoglobin NEGATIVE Urine Glucose NEGATIVE Urine Total Protein 2+ H Urine Opiates Screen Negative Urine Barbiturates Negative Urine Amphetamines Screen Negative Urine Benzodiazepines Screen Negative Urine Cocaine Screen Negative Urine Cannabinoids Negative Hepatitis B Surface Antigen NEGATIVE Hepatitis B Surface Antibody POSITIVE H White Blood Count 4.4 L Red Blood Count 3.28 L Hemoglobin 10.2 L Hematocrit 31.1 L Mean Corpuscular Volume 94.8 Mean Corpuscular Hemoglobin 31.1 Mean Corpuscular 32.8 Hemoglobin Concent Red Cell Distribution Width 14.6 H Platelet Count 125 L Mean Platelet Volume 10.9 H Immature Granulocytes % 0.200 Neutrophils % 36.7 L Lymphocytes % 47.6 Monocytes % 10.7 Eosinophils % 4.1 Basophils % 0.7 Nucleated Red Blood Cells % 0.0 Immature Granulocytes # 0.010 Neutrophils # 1.6 Lymphocytes # 2.1 Monocytes # 0.5 Eosinophils # 0.2 Basophils # 0.0 Nucleated Red Blood Cells # 0.0 Sodium Level 142 Potassium Level 5.3 H Chloride Level 104 Carbon Dioxide Level 23 Anion Gap 15 H Blood Urea Nitrogen 64 H Creatinine 7.43 H Est Glomerular Filtrat 7 L Rate mL/min Glucose Level 76 # Calcium Level 9.1 Magnesium Level 2.1 Medications Medication Current Medications Calcium Acetate (Phoslo) 1,334 mg WITH MEALS PO Last administered on 02/21/19at 07:15; Admin Dose 1,334 MG; Start 02/20/19 at 07:55 Clonidine (Catapres) 0.1 mg TID PRN PO SBP > 160; Start 02/19/19 at 20:30 Clopidogrel Bisulfate (plaVIX) 75 mg DAILY PO Last administered on 02/21/19at 08:14; Admin Dose 75 MG; Start 02/20/19 at 09:00 Diphenhydramine HCl (Benadryl) 50 mg QHS PO Last administered on 02/20/19 20:37; Admin Dose 50 MG; Start 02/19/19 at 21:00 Labetalol HCl (Normodyne) 200 mg TID PO Last administered on 02/20/19 20:37; Admin Dose 200 MG; Start 02/19/19 at 21:00 Nifedipine (Procardia Xl) 90 mg DAILY PO Last administered on 02/20/19 08:31; Admin Dose 90 MG; Start 02/20/19 at 09:00 IV Flush (NS 3 ml) 3 ml PER PROTOCOL IV ; Start 02/19/19 at 20:30 Ondansetron HCl (Zofran Inj) 4 mg Q6H PRN IV NAUSEA/VOMITING; Start 02/19/19 at 20:30 Nitroglycerin (Nitroglycerin (Sl Tab) 0.4 Mg) 1 tab Q5M PRN SL .CHEST PAIN; Start 02/19/19 at 20:30 Acetaminophen (Tylenol Tab) 650 mg Q6H PRN PO .PAIN 1-3 OR TEMP; Start 02/19/19 at 20:30 Morphine Sulfate (morphine) 2 mg Q4H PRN IV .PAIN 7-10; Start 02/19/19 at 20:30 Docusate Sodium (Colace) 100 mg Q12H PRN PO .CONSTIPATION; Start 02/19/19 at 20:30 Bisacodyl (Dulcolax) 5 mg DAILY PRN PO .CONSTIPATION; Start 02/19/19 at 20:30 Hydralazine HCl (Apresoline) 10 mg Q4H PRN IV ELEVATED BLOOD PRESSURE; Start 02/19/19 at 20:30 Lorazepam (Ativan) 1 mg Q2H PRN IV seizures Last administered on 02/21/19 12:51; Admin Dose 1 MG; Start 02/20/19 at 11:30 Cholecalciferol (Vitamin D) 1,000 unit DAILY PO Last administered on 02/21/19 08:14; Admin Dose 1,000 UNIT; Start 02/21/19 at 09:00 Folic Acid (Folic Acid) 1 mg DAILY PO Last administered on 02/21/19 08:14; Admin Dose 1 MG; Start 02/20/19 at 12:00 Multivit/Ca Carb/ B Cmplx/FA/Prenat (Giselle-Xavier) 1 tab DAILY PO Last administered on 02/21/19 08:14; Admin Dose 1 TAB; Start 02/20/19 at 12:00 Losartan Potassium (Cozaar) 100 mg QHS PO Last administered on 02/20/19 20:36; Admin Dose 100 MG; Start 02/20/19 at 21:00 Heparin Sodium (Porcine) (Heparin (1000 Units/ml)) 2,000 unit WITH DIALYSIS HE Last administered on 02/21/19 10:56; Admin Dose 2,000 UNIT; Start 02/20/19 at 14:00 Heparin Sodium (Porcine) (Heparin (1000 Units/ml)) 2,000 unit WITH DIALYSIS HE Last administered on 02/21/19 12:02; Admin Dose 2,000 UNIT; Start 02/20/19 at 14:00 Albumin Human 100 ml @ 100 mls/hr WITH DIALYSIS PRN IV SBP <90 DURING DIALYSIS; Start 02/20/19 at 14:00 Sodium Chloride (NS) -To prime the dialy... DIRECTED FOR HD PRN IV* HD; Start 02/20/19 at 14:00 Divalproex Sodium (Depakote Er) 500 mg BID PO Last administered on 02/21/19 08:14; Admin Dose 500 MG; Start 02/20/19 at 23:00 Docusate Sodium (Colace) 100 mg BID PO Last administered on 02/21/19 08:14; Admin Dose 100 MG; Start 02/20/19 at 21:00 Ceftriaxone Sodium 50 ml @ 100 mls/hr Q24H IVPB ; Start 02/21/19 at 09:30 Heparin Sodium (Porcine) (Heparin (1000 Units/ml)) 3,200 unit AFTER DIALYSIS CATHETER Last administered on 02/21/19 13:07; Admin Dose 3,200 UNIT; Start 02/21/19 at 11:30 BLANKA ESTEBAN NP Feb 21, 2019 14:27
--- NOTE | 2019-02-22 14:48 | DS ---
Date/Time of Note Date/Time of Note DATE: 02/22/19 TIME: 14:39 Discharge Summary Admission/Discharge Info Admit Date/Time Feb 20, 2019 at 11:22 Discharge Date/Time Feb 21, 2019 at 15:08 (AGAINST MEDICAL ADVISE) Discharge Diagnosis Chest pain, reproducible,likely musculoskeletal.Resolved Epilepsy vs pseudo seizures. ESRD/HD MWF -Access: Left upper extremity AV shunt Anemia of ESRD Dyslipidemia Essential hypertension Vitamin D deficiency History of stroke Epilepsy tobacco use Patient Condition: Stable Consults dr.patel deleon Hospital Course 58 yo F w/ history of disorders, ESRD/HD MWF,htn,anemia,cva,Tobacco use, transferred from dialysis unit for chest pain. On exam, patient has quite localized and reproducible pain with palpation of chest wall, so most likley this is a musculoskeletal pain in origin.Troponins and EKG are negative for acute TX and the duration of her syptoms are not consistent with angina or ACS. Patient cardiology f/u. No need for provocative Stress testing given not consistent with angina.No respiratory symptoms and low wells score to suggest PE .Aspirin held given low pretest probability for cardiac events.. Patient was noted with seizure like activities with dialysis couple times which lasts long up to 12mins without loosing her consciousness,or awareness.She has shaking bilaterally. She appears calm with total awareness after receiving Ativan. Vital signs stable with each occurrence.Brain ct unremarkable. Patient had neurology eval and felt like Epilepsy vs pseudoseizures. She was treated with Depakote. pt was dialyzed per nephro team. as plan was to keep her for another 24hrs to monitor for any seizure occurrence, she decided to leave against medical advise because she wanted to smoke. Despite our efforts, patient had decided to leave AGAINST MEDICAL ADVICE. Patient has normal mental status and full decisional capacity. Patient understood her condition and the risk of leaving AMA, including but not limited to permanent disability, etc., and had an opportunity to ask questions about own medical condition. The patient has been informed that the patient may return for care anytime and has been referred to primary care provider for follow-up as soon as possible. Patient was seen in collaboration with Home Meds Reported Medications Losartan Potassium* (Losartan Potassium*) 100 Mg Tablet, 100 MG PO QHS, TAB 02/19/19 Docusate Sodium (Dok) 100 Mg Capsule, 10 MG PO BID for 90 Days, #180 02/19/19 Folic Acid/Vitamin B Comp W-C (Renal Multivitamin Tablet) 0.8 Mg Tablet, 0.8 MG PO DAILY for 60 Days, #60 02/19/19 Cholecalciferol* (Vitamin D3*) 1,000 Unit Tablet, 1000 UNIT PO DAILY for 90 Days, #90 02/19/19 Folic Acid* (Folic Acid*) 1 Mg Tablet, 1 MG PO DAILY for 60 Days, #60 02/19/19 Nifedipine* (Nifedipine ER*) 90 Mg Tablet.sa, 90 MG PO DAILY, TAB.SA 08/23/18 Diphenhydramine Hcl (BANOPHEN) 50 Mg Capsule, 50 MG PO QHS, CAP 08/23/18 Labetalol Hcl* (Labetalol Hcl*) 200 Mg Tablet, 200 MG PO TID, TAB 07/05/18 Calcium Acetate* (Calcium Acetate*) 667 Mg Capsule, 1334 MG PO WITH MEALS, #60 CAP 07/05/18 Clonidine Hcl* (Clonidine Hcl*) 0.1 Mg Tab, 0.1 MG PO TID PRN for ELEVATED BLOOD PRESSURE, TAB 07/05/18 Clopidogrel Bisulfate* (Clopidogrel Bisulfate*) 75 Mg Tablet, 75 MG PO DAILY, #30 TAB 07/05/18 Discontinued Reported Medications Losartan Potassium* (Losartan Potassium*) 50 Mg Tablet, 50 MG PO DAILY, TAB 08/23/18 Discontinued Scripts Levetiracetam* (Keppra*) 1,000 Mg Tablet, 1000 MG PO every 24 hours, #60 TAB Prov:CORDELL LITTLE DO 07/05/18 Primary Care Provider Not On Staff Doctor Pending Labs Laboratory Tests Test 02/22/19 11:42 Lab Scanned Report [facility] [id number] BLANKA ESTEBAN NP Feb 22, 2019 14:48
== END 2019-02-21 15:08 | disposition left against medical advice (07) | DRG 313 ==
LOC: E/R 17:28 → TEL 19:42 → OBSVTOIN 02-20 11:22
PROVIDERS: ADMIT Family Medicine; ATTEND Family Medicine
DX: R07.89 Other chest pain (principal); N18.6 End stage renal disease; I12.0 Hypertensive chronic kidney disease with stage 5 chronic kidney disease or end stage renal disease; G40.89 Other seizures; J45.909 Unspecified asthma, uncomplicated; F32.9 Major depressive disorder, single episode, unspecified; D64.9 Anemia, unspecified; D63.1 Anemia in chronic kidney disease; E55.9 Vitamin D deficiency, unspecified; E78.5 Hyperlipidemia, unspecified; F17.200 Nicotine dependence, unspecified, uncomplicated; Z99.2 Dependence on renal dialysis; Z86.73 Personal history of transient ischemic attack (TIA), and cerebral infarction without residual deficits; Z88.6 Allergy status to analgesic agent; Z91.19 Patient's noncompliance with other medical treatment and regimen; Z95.828 Presence of other vascular implants and grafts; Z53.21 Procedure and treatment not carried out due to patient leaving prior to being seen by health care provider
CPT/HCPCS: 36415; 70450; 71045; 80048; 80053; 80061; 80164; 80307; 81001; 82550; 82553; 83036; 83735; 84443; 84484; 85025; 86706; 87081; 87340; 90935; 93005; 93306; G0378; J1644; J1953; J2060; J7030

== ENCOUNTER 2019-04-20 15:43 | Emergency (ER) | payer OTHER ==
[~2019-04-20] VITALS: Ht 162.6 cm; Wt 70.0 kg
[~2019-04-20 15:43] MED LIST changes: +ALBU8.5H8 INH; +CHOL100062 PO; +DOCU-216 PO; +FOLI-49 PO; +FOLI0.8T2 PO; -LEVE100018 PO; +LORA-441 PO; +LOSA100T15 PO; -LOSA50TA14 PO; +PRED20TA PO
[2019-04-20 15:45] VITALS: Ht 162.6 cm; Wt 70.0 kg
[2019-04-20] MEDS ORDERED: METHYLPREDNISOLONE 125 MG INJ IV STA (15:45)
[2019-04-20] MEDS ORDERED: ALBUTEROL 0.5% (NEB) 2.5 MG/0.5 ML AMP INH STA (15:45)
[2019-04-20] MEDS ORDERED: IPRATROPIUM (NEB) 0.5 MG/2.5 ML AMP INH STA (15:45)
[2019-04-20] MEDS ORDERED: LORAZEPAM 0.5 MG TAB PO ONE (16:00)
[2019-04-20 18:23] VITALS: BP 176/90; PULSE 85; RESP 16
== END 2019-04-20 19:05 | disposition home or self-care (01) ==
LOC: E/R 15:43
DX: I12.0 Hypertensive chronic kidney disease with stage 5 chronic kidney disease or end stage renal disease (principal); N18.6 End stage renal disease; J45.909 Unspecified asthma, uncomplicated; F41.9 Anxiety disorder, unspecified; Z79.02 Long term (current) use of antithrombotics/antiplatelets; Z86.73 Personal history of transient ischemic attack (TIA), and cerebral infarction without residual deficits; Z87.891 Personal history of nicotine dependence; Z99.2 Dependence on renal dialysis
CPT/HCPCS: 36415; 71045; 80053; 83690; 84484; 85025; 94644; 96374; J2930; Z7502; Z7610; 93005